=== PATIENT | female | born 1940 ===

== ENCOUNTER 2019-06-01 17:19 | Inpatient (IN) | payer MEDICARE ==
[2019-06-01] MEDS ORDERED: MORPHINE 4 MG/1 ML INJ IV ONE (18:17)
[2019-06-01] MEDS ORDERED: ONDANSETRON 4 MG/2 ML INJ IV ONE (18:17)
[2019-06-01] MEDS ORDERED: KETOROLAC 30 MG/1 ML INJ IV ONE (18:17)
[2019-06-01 18:45] LABS: Hematocrit 46.8 % (30.3-42.9); Hemoglobin 15.6 gm/dl (10.1-14.3); Mean Corpuscular HGB Conc 33 % (30-34); Mean Corpuscular Volume 99 fl (79-97); Platelet Count 191 K/mm3 (140-440); Red Blood Count 4.72 M/mm3 (3.65-5.03); Red Cell Distribution Width 13.7 % (13.2-15.2)
[2019-06-01 18:55] LABS: Alanine Aminotransferase 19 units/L (7-56); Albumin 3.6 g/dL (3.9-5); BUN/Creatinine Ratio 30; Blood Urea Nitrogen 24 mg/dL (7-17); Calcium 9.5 mg/dL (8.4-10.2); Hemolysis Index 74
[2019-06-01 19:03] LABS: Bilirubin,Direct < 0.2 mg/dL (0-0.2)
--- NOTE | 2019-06-01 19:05 | Emergency Department Report ---
ED Abdominal Pain HPI - General Chief Complaint: Abdominal Pain Stated Complaint: ABDOMINAL PAIN Time Seen by Provider: 06/01/19 18:13 Source: patient Mode of arrival: Ambulatory Limitations: Language Barrier - History of Present Illness Initial Comments: Patient is a 78-year-old female who is presenting with right lower quadrant pain. Patient's granddaughter and son her primary interpreters and the patient stated that she was filed with the interpreting for her. The patient states that for the past 2 weeks she's had some dull lower abdominal discomfort that she attributed to a possible gas. Over the past 2-4 days this is worsened significantly. The patient states is now a constant 8 out of 10 pain. She denies nausea vomiting diarrhea or fever. Patient also states she has no cough or worsened shortness of breath. Patient's is on oxygen at home. Patient has a history of hypertension and had a partial liver resection secondary to cancer 6 years ago. - Related Data Allergies Allergy/AdvReac Type Severity Reaction Status Date / Time pork derived (porcine) AdvReac Hives Verified 06/01/19 17:23 ED Review of Systems ROS: Stated complaint: ABDOMINAL PAIN Other details as noted in HPI Comment: All other systems reviewed and negative ED Past Medical Hx - Past Medical History Hx Hypertension: Yes Hx of Cancer: Yes (lung ca 6yrs ago liver ca) Additional medical history: rt liver removed liver ca - Surgical History Additional Surgical History: umbilical removed - Social History Smoking Status: Never Smoker Substance Use Type: None ED Physical Exam - General Limitations: Language Barrier General appearance: alert, in no apparent distress - Head Head exam: Present: atraumatic, normocephalic - Eye Eye exam: Present: normal appearance, PERRL, EOMI - ENT ENT exam: Present: mucous membranes moist - Neck Neck exam: Present: normal inspection - Respiratory Respiratory exam: Present: normal lung sounds bilaterally. Absent: respiratory distress, wheezes, rales, rhonchi - Cardiovascular Cardiovascular Exam: Present: regular rate, normal rhythm, normal heart sounds. Absent: systolic murmur, diastolic murmur, rubs, gallop - GI/Abdominal GI/Abdominal exam: Present: soft, tenderness, normal bowel sounds, other (RLQ scar present from previous surgeries). Absent: distended, guarding, rebound, rigid - Extremities Exam Extremities exam: Present: normal inspection - Back Exam Back exam: Present: normal inspection - Neurological Exam Neurological exam: Present: alert, oriented X3 - Psychiatric Psychiatric exam: Present: normal affect, normal mood - Skin Skin exam: Present: warm, dry, intact, normal color. Absent: rash ED Course Vital Signs 06/01/19 06/01/19 06/01/19 17:28 19:14 20:00 Temperature 98.3 F Pulse Rate 61 60 Respiratory 20 18 20 Rate Blood Pressure 122/46 Blood Pressure 126/57 [Left] O2 Sat by Pulse 92 93 Oximetry ED Medical Decision Making - Lab Data Result diagrams: 06/01/19 18:22 06/01/19 18:22 Lab Results 06/01/19 06/01/19 Range/Units 18:22 18:22 WBC 5.1 (4.5-11.0) K/mm3 RBC 4.72 (3.65-5.03) M/mm3 Hgb 15.6 H (10.1-14.3) gm/dl Hct 46.8 H (30.3-42.9) % MCV 99 H (79-97) fl MCH 33 H (28-32) pg MCHC 33 (30-34) % RDW 13.7 (13.2-15.2) % Plt Count 191 (140-440) K/mm3 Cotton % (Auto) Finisher Machine Sodium 133 L (137-145) mmol/L Potassium 4.2 (3.6-5.0) mmol/L Chloride 95.4 L (98-107) mmol/L Carbon Dioxide 21 L (22-30) mmol/L Anion Gap 21 mmol/L BUN 24 H (7-17) mg/dL Creatinine 0.8 (0.7-1.2) mg/dL Estimated GFR > 60 ml/min BUN/Creatinine Ratio 30 % Glucose 137 H (65-100) mg/dL Calcium 9.5 (8.4-10.2) mg/dL Total Bilirubin 0.60 (0.1-1.2) mg/dL Direct Bilirubin < 0.2 (0-0.2) mg/dL Indirect Bilirubin 0.4 mg/dL AST 33 (5-40) units/L ALT 19 (7-56) units/L Alkaline Phosphatase 86 (35-129) units/L Total Protein 7.5 (6.3-8.2) g/dL Albumin 3.6 L (3.9-5) g/dL Albumin/Globulin Ratio 0.9 % Lipase 56 (13-60) units/L - Radiology Data Ordering Physician: LUPE BOYD MD Date of Service: 06/01/19 Procedure(s): CT abdomen pelvis w con Accession Number(s): [id number] cc: LUPE BOYD MD CT ABDOMEN AND PELVIS WITH CONTRAST HISTORY: Right lower quadrant abdominal pain COMPARISON: None TECHNIQUE: Routine abdominal and pelvic CT exam performed following intravenous contrast administration. The patient received 100 mL of IV Omnipaque 300. All CT scans at this location are performed using CT dose reduction for ALARA by means of automated exposure control. FINDINGS: CT ABDOMEN: Lung Bases: There are numerous pulmonary nodules in the visualized right lung, with the largest in the posterior right lower lobe measuring 3.3 x 2.5 cm. There is some small nodules in the left lower lung as well measuring up to 5 mm. Liver: No significant abnormality. Biliary: No significant abnormality. Spleen: No significant abnormality. Unenlarged. Pancreas: No significant abnormality. Adrenals: No significant abnormality. Kidneys: The right kidney is surgically absent. There are multiple small simple cysts in the left kidney without acute abnormality. Vasculature: No significant abnormality. Bowel/Peritoneum: There is a mass in the root of the mesentery anterior to the inferior margin of the IVC and abdominal aorta with internal hypoattenuation most likely reflecting necrosis. This mass measures 3.8 x 3.1 cm. There is no bowel obstruction, free air, or portal venous gas. CT PELVIC: : No significant abnormality. Lymphatics: No lymphadenopathy. Osseous Structures: No aggressive appearing osseous lesions. There is a vertebral body hemangioma in the L2 vertebral body. Additional Findings: None IMPRESSION: 1. Innumerable bilateral, right greater than left, pulmonary nodules and masses in the visualized lower lungs suggesting metastatic disease. 2. Necrotic mass in the root of the mesentery anterior to the aorta and IVC, also likely metastatic lesion/adenopathy. Signer Name: Gene Akers MD - Medical Decision Making Patient is a 78-year-old female with a past medical history of liver cancer with possible cancer in the right lung. Family states that the patient to their knowledge never underwent chemotherapy but did have a partial resection of the liver done. After that time the patient's been on oxygen as well secondary to possible scar tissue of the lungs. Patient's pain started appro ximately 2 weeks ago was mild until 3 days ago patient started having severe pain. Patient's pain is improved after a dose of morphine here in the emergency department. After her studies are relatively unremarkable. The patient's CT is suggestive of metastatic disease and there is a necrotic mass at the mesentery. Patient to be admitted to the hospitalist service for consultation with hemoptysis surgery. Patient started on Zosyn for the necrotic area that is present on CT. Patient admitted in stable condition. Critical care attestation.: If time is entered above; I have spent that time in minutes in the direct care of this critically ill patient, excluding procedure time. ED Disposition Clinical Impression: Mesenteric mass, Metastatic disease Abdominal pain Qualifiers: Abdominal location: generalized Qualified Code(s): R10.84 - Generalized abdominal pain Disposition: OP ADMIT IP TO THIS HOSP Is pt being admited?: Yes Does the pt Need Aspirin: No Condition: Stable Time of Disposition: 20:57
[2019-06-01 20:08] LABS: Basophils % (Manual) 0 % (0.0-1.8); RBC Morphology Normal; Total Cells Counted 100
--- NOTE | 2019-06-01 20:22 | Cat Scan Report ---
CT ABDOMEN AND PELVIS WITH CONTRAST HISTORY: Right lower quadrant abdominal pain COMPARISON: None TECHNIQUE: Routine abdominal and pelvic CT exam performed following intravenous contrast administrat ion. The patient received 100 mL of IV Omnipaque 300. All CT scans at this location are performed usi ng CT dose reduction for ALARA by means of automated exposure control. FINDINGS: CT ABDOMEN: Lung Bases: There are numerous pulmonary nodules in the visualized right lung, with the largest in th e posterior right lower lobe measuring 3.3 x 2.5 cm. There is some small nodules in the left lower ally ng as well measuring up to 5 mm. Liver: No significant abnormality. Biliary: No significant abnormality. Spleen: No significant abnormality. Unenlarged. Pancreas: No significant abnormality. Adrenals: No significant abnormality. Kidneys: The right kidney is surgically absent. There are multiple small simple cysts in the left kid rekha without acute abnormality. Vasculature: No significant abnormality. Bowel/Peritoneum: There is a mass in the root of the mesentery anterior to the inferior margin of the IVC and abdominal aorta with internal hypoattenuation most likely reflecting necrosis. This mass avani sures 3.8 x 3.1 cm. There is no bowel obstruction, free air, or portal venous gas. CT PELVIC: : No significant abnormality. Lymphatics: No lymphadenopathy. Osseous Structures: No aggressive appearing osseous lesions. There is a vertebral body hemangioma in the L2 vertebral body. Additional Findings: None IMPRESSION: 1. Innumerable bilateral, right greater than left, pulmonary nodules and masses in the visualized low er lungs suggesting metastatic disease. 2. Necrotic mass in the root of the mesentery anterior to the aorta and IVC, also likely metastatic l esion/adenopathy. Signer Name: Gene Akers MD Signed: 06/01/2019 8:18 PM Workstation Name: [id number]
[2019-06-01 20:35] LABS: Bilirubin,Urine NEG (Negative); Blood,Urine NEG (Negative); Color,Urine Yellow (Yellow); Mucus,Urine FEW /HPF; Protein,Urine <15 mg/dL mg/dL (Negative); Urobilinogen,Urine < 2.0 mg/dL (<2.0)
[2019-06-01] MEDS ORDERED: PIPERACIL/TAZOBACTA 4.5/NS 100 4.5 GM/100 ML VIAL IV ONE (20:52)
[2019-06-01] MEDS ORDERED: ONDANSETRON 4 MG/2 ML INJ IV PRN (21:38)
[2019-06-01] MEDS ORDERED: ALBUTEROL 2.5 MG/3 ML NEBU IH PRN (22:42)
--- NOTE | 2019-06-01 22:46 | History and Physical Report ---
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 Pt's granddaughter are present at bedside. Pt has requested that they translate and assist in providing history. Pt has been experiencing intermittent 4/10 dull abdominal pain for the past 2 weeks which has progressively worsened over the past 3 days. Her pain is now persistent and has intensified. She rates her pain 9/10. Her pain in diffuse. There are no aggravating, and is relieved with IV pain meds. She denies n/v. Past History Past Medical History: cancer (lung ca with mets to liver (approx 6yrs ago in 2012)), hypertension Past Surgical History: Other (s/p partial liver resection, umbilical removed, kidney removal) Social history: lives with family, full code Family history: no significant family history Medications and Allergies Allergies Allergy/AdvReac Type Severity Reaction Status Date / Time pork derived (porcine) AdvReac Hives Verified 06/01/19 17:23 Home Medications Medication Instructions Recorded Confirmed Last Taken Type Unobtainable 06/01/19 06/01/19 Unknown History Active Meds: Active Medications Acetaminophen (Tylenol) 650 mg PO Q4H PRN PRN Reason: Pain MILD(1-3)/Fever >100.5/ALAN Sodium Chloride (Nacl 0.9% 1000 Ml) 1,000 mls @ 75 mls/hr IV DIRECT DOLLY Morphine Sulfate (Morphine) 2 mg IV Q4H PRN PRN Reason: Pain, Moderate (4-6) Ondansetron HCl (Zofran) 4 mg IV Q6H PRN PRN Reason: Nausea And Vomiting Sodium Chloride (Sodium Chloride Flush Syringe 10 Ml) 10 ml IV BID [facility] Last Admin: 06/01/19 22:04 Dose: 10 ml Documented by: Sodium Chloride (Sodium Chloride Flush Syringe 10 Ml) 10 ml IV PRN PRN PRN Reason: LINE FLUSH Review of Systems All systems: negative Cardiovascular: shortness of breath, dyspnea on exertion Gastrointestinal: abdominal pain Exam - Physical Exam Narrative exam: Physical exam Limitations: Language Barrier General appearance: Present: No acute distress, alert and oriented 3, older adult female - EENT Eyes: Present: PERRL, EOM intact ENT: hearing intact, missing teeth - Neck Neck: Present: supple, normal ROM - Respiratory Respiratory effort: Non-labored Respiratory: Diminished bases - Cardiovascular Heart rate: 60 (bpm) Rhythm: Sinus rhythm Heart Sounds: Present: S1 & S2. Absent: rub, click - Extremities Extremities: no ischemia, pulses intact, - Peripheral Assessment Peripheral Pulses: within normal limits - Abdominal General gastrointestinal: soft, RUQ and RLQ tenderness, normal bowel sounds, RLQ scar present from previous surgery - Integumentary Integumentary: Present: warm, dry - Musculoskeletal Musculoskeletal: Able to move all extremities, generalized weakness -Neurological Neurological: CN II-XII intact - Psychiatric Psychiatric: cooperative - Constitutional Vitals: Temp Pulse Resp BP Pulse Ox 98.3 F 60 20 126/57 93 06/01/19 17:28 06/01/19 19:14 06/01/19 20:00 06/01/19 19:14 06/01/19 19:14 Results - Labs CBC & Chem 7: 06/01/19 18:22 06/01/19 18:22 Labs: Laboratory Last Values WBC 5.1 K/mm3 (4.5-11.0) 06/01/19 18:22 RBC 4.72 M/mm3 (3.65-5.03) 06/01/19 18:22 Hgb 15.6 gm/dl (10.1-14.3) H 06/01/19 18:22 Hct 46.8 % (30.3-42.9) H 06/01/19 18:22 MCV 99 fl (79-97) H 06/01/19 18:22 MCH 33 pg (28-32) H 06/01/19 18:22 MCHC 33 % (30-34) 06/01/19 18:22 RDW 13.7 % (13.2-15.2) 06/01/19 18:22 Plt Count 191 K/mm3 (140-440) 06/01/19 18:22 Labette % (Auto) Movie Star 06/01/19 18:22 Add Manual Diff Complete 06/01/19 18:22 Total Counted 100 06/01/19 18:22 Seg Neuts % (Manual) 68.0 % (40.0-70.0) 06/01/19 18:22 Band Neutrophils % 0 % 06/01/19 18:22 Lymphocytes % (Manual) 18.0 % (13.4-35.0) 06/01/19 18:22 Reactive Lymphs % (Man) 0 % 06/01/19 18:22 Monocytes % (Manual) 13.0 % (0.0-7.3) H 06/01/19 18:22 Eosinophils % (Manual) 1.0 % (0.0-4.3) 06/01/19 18:22 Basophils % (Manual) 0 % (0.0-1.8) 06/01/19 18:22 Metamyelocytes % 0 % 06/01/19 18:22 Myelocytes % 0 % 06/01/19 18:22 Promyelocytes % 0 % 06/01/19 18:22 Blast Cells % 0 % 06/01/19 18:22 Nucleated RBC % Not Reportable 06/01/19 18:22 Seg Neutrophils # Man 3.5 K/mm3 (1.8-7.7) 06/01/19 18:22 Band Neutrophils # 0.0 K/mm3 06/01/19 18:22 Lymphocytes # (Manual) 0.9 K/mm3 (1.2-5.4) L 06/01/19 18:22 Abs React Lymphs (Man) 0.0 K/mm3 06/01/19 18:22 Monocytes # (Manual) 0.7 K/mm3 (0.0-0.8) 06/01/19 18:22 Eosinophils # (Manual) 0.1 K/mm3 (0.0-0.4) 06/01/19 18:22 Basophils # (Manual) 0.0 K/mm3 (0.0-0.1) 06/01/19 18:22 Metamyelocytes # 0.0 K/mm3 06/01/19 18:22 Myelocytes # 0.0 K/mm3 06/01/19 18:22 Promyelocytes # 0.0 K/mm3 06/01/19 18:22 Blast Cells # 0.0 K/mm3 06/01/19 18:22 WBC Morphology Not Reportable 06/01/19 18:22 Hypersegmented Neuts Not Reportable 06/01/19 18:22 Hyposegmented Neuts Not Reportable 06/01/19 18:22 Hypogranular Neuts Not Reportable 06/01/19 18:22 Smudge Cells Not Reportable 06/01/19 18:22 Toxic Granulation Not Reportable 06/01/19 18:22 Toxic Vacuolation Not Reportable 06/01/19 18:22 Dohle Bodies Not Reportable 06/01/19 18:22 Pelger-Huet Anomaly Not Reportable 06/01/19 18:22 Zoila Rods Not Reportable 06/01/19 18:22 Platelet Estimate Not Reportable 06/01/19 18:22 Clumped Platelets Not Reportable 06/01/19 18:22 Plt Clumps, EDTA Not Reportable 06/01/19 18:22 Large Platelets Not Reportable 06/01/19 18:22 Giant Platelets Not Reportable 06/01/19 18:22 Platelet Satelliting Not Reportable 06/01/19 18:22 Plt Morphology Comment Not Reportable 06/01/19 18:22 RBC Morphology Normal 06/01/19 18:22 Dimorphic RBCs Not Reportable 06/01/19 18:22 Polychromasia Not Reportable 06/01/19 18:22 Hypochromasia Not Reportable 06/01/19 18:22 Poikilocytosis Not Reportable 06/01/19 18:22 Anisocytosis Not Reportable 06/01/19 18:22 Microcytosis Not Reportable 06/01/19 18:22 Macrocytosis Not Reportable 06/01/19 18:22 Spherocytes Not Reportable 06/01/19 18:22 Pappenheimer Bodies Not Reportable 06/01/19 18:22 Sickle Cells Not Reportable 06/01/19 18:22 Target Cells Not Reportable 06/01/19 18:22 Tear Drop Cells Not Reportable 06/01/19 18:22 Ovalocytes Not Reportable 06/01/19 18:22 Helmet Cells Not Reportable 06/01/19 18:22 Jay-Presho Bodies Not Reportable 06/01/19 18:22 [place] Rings Not Reportable 06/01/19 18:22 [place] Cells Not Reportable 06/01/19 18:22 Bite Cells Not Reportable 06/01/19 18:22 Crenated Cell Not Reportable 06/01/19 18:22 Elliptocytes Not Reportable 06/01/19 18:22 Acanthocytes (Spur) Not Reportable 06/01/19 18:22 Rouleaux Not Reportable 06/01/19 18:22 Hemoglobin C Crystals Not Reportable 06/01/19 18:22 Schistocytes Not Reportable 06/01/19 18:22 Malaria parasites Not Reportable 06/01/19 18:22 Kewrin Bodies Not Reportable 06/01/19 18:22 Hem Pathologist Commnt No 06/01/19 18:22 Sodium 133 mmol/L (137-145) L 06/01/19 18:22 Potassium 4.2 mmol/L (3.6-5.0) 06/01/19 18:22 Chloride 95.4 mmol/L (98-107) L 06/01/19 18:22 Carbon Dioxide 21 mmol/L (22-30) L 06/01/19 18:22 Anion Gap 21 mmol/L 06/01/19 18:22 BUN 24 mg/dL (7-17) H 06/01/19 18:22 Creatinine 0.8 mg/dL (0.7-1.2) 06/01/19 18:22 Estimated GFR > 60 ml/min 06/01/19 18:22 BUN/Creatinine Ratio 30 % 06/01/19 18:22 Glucose 137 mg/dL (65-100) H 06/01/19 18:22 Calcium 9.5 mg/dL (8.4-10.2) 06/01/19 18:22 Total Bilirubin 0.60 mg/dL (0.1-1.2) 06/01/19 18:22 Direct Bilirubin < 0.2 mg/dL (0-0.2) 06/01/19 18:22 Indirect Bilirubin 0.4 mg/dL 06/01/19 18:22 AST 33 units/L (5-40) 06/01/19 18:22 ALT 19 units/L (7-56) 06/01/19 18:22 Alkaline Phosphatase 86 units/L (35-129) 06/01/19 18:22 Total Protein 7.5 g/dL (6.3-8.2) 06/01/19 18:22 Albumin 3.6 g/dL (3.9-5) L 06/01/19 18:22 Albumin/Globulin Ratio 0.9 % 06/01/19 18:22 Lipase 56 units/L (13-60) 06/01/19 18:22 Urine Color Yellow (Yellow) 06/01/19 20: Urine Turbidity Clear (Clear) 06/01/19 20:26 Urine pH 6.0 (5.0-7.0) 06/01/19 20:26 Ur Specific [place] 1.043 (1.003-1.030) H 06/01/19 20:26 Urine Protein <15 mg/dl mg/dL (Negative) 06/01/19 20:26 Urine Glucose (UA) Neg mg/dL (Negative) 06/01/19 20: Urine Ketones Neg mg/dL (Negative) 06/01/19 20: Urine Blood Neg (Negative) 06/01/19 20:26 Urine Nitrite Neg (Negative) 06/01/19 20:26 Urine Bilirubin Neg (Negative) 06/01/19 20:26 Urine Urobilinogen < 2.0 mg/dL (<2.0) 06/01/19 20:26 Ur Leukocyte Esterase Neg (Negative) 06/01/19 20:26 Urine WBC (Auto) 1.0 /HPF (0.0-6.0) 06/01/19 20:26 Urine RBC (Auto) 1.0 /HPF (0.0-6.0) 06/01/19 20:26 U Epithel Cells (Auto) < 1.0 /HPF (0-13.0) 06/01/19 20:26 Urine Mucus Few /HPF 06/01/19 20:26 - Imaging and Cardiology Imaging and Cardiology: CT Abdomen/Pelvis: FINDINGS: CT ABDOMEN: Lung Bases: There are numerous pulmonary nodules in the visualized right lung, with the largest in the posterior right lower lobe measuring 3.3 x 2.5 cm. There is some small nodules in the left lower lung as well measuring up to 5 mm. Liver: No significant abnormality. Biliary: No significant abnormality. Spleen: No significant abnormality. Unenlarged. Pancreas: No significant abnormality. Adrenals: No significant abnormality. Kidneys: The right kidney is surgically absent. There are multiple small simple cysts in the left kidney without acute abnormality. Vasculature: No significant abnormality. Bowel/Peritoneum: There is a mass in the root of the mesentery anterior to the inferior margin of the IVC and abdominal aorta with internal hypoattenuation most likely reflecting necrosis. This mass measures 3.8 x 3.1 cm. There is no bowel obstruction, free air, or portal venous gas. CT PELVIC: : No significant abnormality. Lymphatics: No lymphadenopathy. Osseous Structures: No aggressive appearing osseous lesions. There is a vertebral body hemangioma in the L2 vertebral body. Additional Findings: None IMPRESSION: 1. Innumerable bilateral, right greater than left, pulmonary nodules and masses in the visualized lower lungs suggesting metastatic disease. 2. Necrotic mass in the root of the mesentery anterior to the aorta and IVC, also likely metastatic lesion/adenopathy. Assessment and Plan Assessment and plan: 71-year-old speaking female with history of hypertension and Liver cancer wit mets to liver who presents to [facility] ED with complaints of abdominal pain for the past 2 weeks, which has progressively worsened over the past 3 days. At the time of my examination, pt is laying down on stretcher with no s/s of distress. She is on 2L NC with saturation of 92%. When questioned about her previous liver, pt is unsure of the name of facility where her surgery was done. Her family seems to think it was performed here at [facility]. This is not reflected in review of medical records. Given the results of pt's CT Abdomen/Pelvis, I have placed a consult to Case Mgmt for possible home palliative care/ hospice services. I discussed goals of care with family, who stated they need time to dicuss with pt and family before making any decisions. Acute abdominal pain -CT Abdomen/Pelvis shows: Necrotic mass in the root of the mesentery anterior to the aorta and IVC, also likely metastatic lesion/adenopathy -Hx of lung cancer with mets to liver, s/p partial liver (approx 6 yrs ago) - Received IV Zosyn in ED -Continue supportive care -GI consulted -General Surgery Consulted -Heme/Onc consulted Bilateral Pulmonary Nodules (Innumerable) - R>L pulmonary nodules and masses in the visualized lower lungs suggesting metastatic disease -Hx of Lung cancer with mets to liver -Denies hx of chemo therapy or radiation -Pulmonary Consulted --Heme/Onc consulted Acute Hypoxic Respiratory Failure -No Baseline home oxygen requirements -Saturations in mid 80's on RA -Currently on supplemental -Monitor saturations -Continue supplemental oxygen wean as tolerated Hyponatremia -Mild -Na on admission 133 -Slowly correct Na with IVF -Continue to monitor replete prn Hx HTN -Currnently noromotensive -Denies use of antihypertensive meds -Monitor BP DVT PPX -Hold off on systemic anticoagulation d/t metastatic disease -SCD's Advance Directives: No VTE prophylaxis?: Mechanical Plan of care discussed with patient/family: Yes <AMRITA CORTEZ - Last Filed: 06/02/19 06:42> History of Present Illness Date of admission: 06/01/19 20:57 Medications and Allergies Active Meds: Active Medications Acetaminophen (Tylenol) 650 mg PO Q4H PRN PRN Reason: Pain MILD(1-3)/Fever >100.5/ALAN Albuterol (Proventil) 2.5 mg IH Q4HRT PRN PRN Reason: Shortness Of Breath Sodium Chloride (Nacl 0.9% 1000 Ml) 1,000 mls @ 75 mls/hr IV DIRECT [facility] Last Admin: 06/02/19 00:30 Dose: 75 mls/hr Documented by: Morphine Sulfate (Morphine) 2 mg IV Q4H PRN PRN Reason: Pain, Moderate (4-6) Last Admin: 06/02/19 04:47 Dose: 2 mg Documented by: Ondansetron HCl (Zofran) 4 mg IV Q6H PRN PRN Reason: Nausea And Vomiting Sodium Chloride (Sodium Chloride Flush Syringe 10 Ml) 10 ml IV BID [facility] Last Admin: 06/01/19 22:04 Dose: 10 ml Documented by: Sodium Chloride (Sodium Chloride Flush Syringe 10 Ml) 10 ml IV PRN PRN PRN Reason: LINE FLUSH Exam - Constitutional Vitals: Temp Pulse Resp BP Pulse Ox 98.8 F 61 18 124/49 92 06/01/19 23:42 06/02/19 05:00 06/02/19 04:47 06/01/19 23:42 06/02/19 01:00 Results - Labs CBC & Chem 7: 06/01/19 18:22 06/01/19 18:22 Labs: Laboratory Last Values WBC 5.1 K/mm3 (4.5-11.0) 06/01/19 18:22 RBC 4.72 M/mm3 (3.65-5.03) 06/01/19 18:22 Hgb 15.6 gm/dl (10.1-14.3) H 06/01/19 18:22 Hct 46.8 % (30.3-42.9) H 06/01/19 18:22 MCV 99 fl (79-97) H 06/01/19 18:22 MCH 33 pg (28-32) H 06/01/19 18:22 MCHC 33 % (30-34) 06/01/19 18:22 RDW 13.7 % (13.2-15.2) 06/01/19 18:22 Plt Count 191 K/mm3 (140-440) 06/01/19 18:22 Labette % (Auto) Movie Star 06/01/19 18:22 Add Manual Diff Complete 06/01/19 18: Total Counted 100 06/01/19 18: Seg Neuts % (Manual) 68.0 % (40.0-70.0) 06/01/19 18:22 Band Neutrophils % 0 % 06/01/19 18:22 Lymphocytes % (Manual) 18.0 % (13.4-35.0) 06/01/19 18:22 Reactive Lymphs % (Man) 0 % 06/01/19 18:22 Monocytes % (Manual) 13.0 % (0.0-7.3) H 06/01/19 18:22 Eosinophils % (Manual) 1.0 % (0.0-4.3) 06/01/19 18:22 Basophils % (Manual) 0 % (0.0-1.8) 06/01/19 18:22 Metamyelocytes % 0 % 06/01/19 18:22 Myelocytes % 0 % 06/01/19 18:22 Promyelocytes % 0 % 06/01/19 18:22 Blast Cells % 0 % 06/01/19 18:22 Nucleated RBC % Not Reportable 06/01/19 18:22 Seg Neutrophils # Man 3.5 K/mm3 (1.8-7.7) 06/01/19 18:22 Band Neutrophils # 0.0 K/mm3 06/01/19 18:22 Lymphocytes # (Manual) 0.9 K/mm3 (1.2-5.4) L 06/01/19 18:22 Abs React Lymphs (Man) 0.0 K/mm3 06/01/19 18:22 Monocytes # (Manual) 0.7 K/mm3 (0.0-0.8) 06/01/19 18:22 Eosinophils # (Manual) 0.1 K/mm3 (0.0-0.4) 06/01/19 18:22 Basophils # (Manual) 0.0 K/mm3 (0.0-0.1) 06/01/19 18:22 Metamyelocytes # 0.0 K/mm3 06/01/19 18:22 Myelocytes # 0.0 K/mm3 06/01/19 18:22 Promyelocytes # 0.0 K/mm3 06/01/19 18:22 Blast Cells # 0.0 K/mm3 06/01/19 18:22 WBC Morphology Not Reportable 06/01/19 18:22 Hypersegmented Neuts Not Reportable 06/01/19 18:22 Hyposegmented Neuts Not Reportable 06/01/19 18:22 Hypogranular Neuts Not Reportable 06/01/19 18:22 Smudge Cells Not Reportable 06/01/19 18:22 Toxic Granulation Not Reportable 06/01/19 18:22 Toxic Vacuolation Not Reportable 06/01/19 18:22 Dohle Bodies Not Reportable 06/01/19 18:22 Pelger-Huet Anomaly Not Reportable 06/01/19 18:22 Zoila Rods Not Reportable 06/01/19 18:22 Platelet Estimate Not Reportable 06/01/19 18:22 Clumped Platelets Not Reportable 06/01/19 18:22 Plt Clumps, EDTA Not Reportable 06/01/19 18:22 Large Platelets Not Reportable 06/01/19 18:22 Giant Platelets Not Reportable 06/01/19 18:22 Platelet Satelliting Not Reportable 06/01/19 18:22 Plt Morphology Comment Not Reportable 06/01/19 18:22 RBC Morphology Normal 06/01/19 18:22 Dimorphic RBCs Not Reportable 06/01/19 18:22 Polychromasia Not Reportable 06/01/19 18:22 Hypochromasia Not Reportable 06/01/19 18:22 Poikilocytosis Not Reportable 06/01/19 18:22 Anisocytosis Not Reportable 06/01/19 18:22 Microcytosis Not Reportable 06/01/19 18:22 Macrocytosis Not Reportable 06/01/19 18:22 Spherocytes Not Reportable 06/01/19 18:22 Pappenheimer Bodies Not Reportable 06/01/19 18:22 Sickle Cells Not Reportable 06/01/19 18:22 Target Cells Not Reportable 06/01/19 18:22 Tear Drop Cells Not Reportable 06/01/19 18:22 Ovalocytes Not Reportable 06/01/19 18:22 Helmet Cells Not Reportable 06/01/19 18:22 Jay-Presho Bodies Not Reportable 06/01/19 18:22 Tyndall Rings Not Reportable 06/01/19 18:22 [place] Cells Not Reportable 06/01/19 18:22 Bite Cells Not Reportable 06/01/19 18:22 Crenated Cell Not Reportable 06/01/19 18:22 Elliptocytes Not Reportable 06/01/19 18:22 Acanthocytes (Spur) Not Reportable 06/01/19 18:22 Rouleaux Not Reportable 06/01/19 18:22 Hemoglobin C Crystals Not Reportable 06/01/19 18:22 Schistocytes Not Reportable 06/01/19 18:22 Malaria parasites Not Reportable 06/01/19 18:22 [place] Bodies Not Reportable 06/01/19 18:22 Hem Pathologist Commnt No 06/01/19 18:22 Sodium 133 mmol/L (137-145) L 06/01/19 18:22 Potassium 4.2 mmol/L (3.6-5.0) 06/01/19 18:22 Chloride 95.4 mmol/L (98-107) L 06/01/19 18:22 Carbon Dioxide 21 mmol/L (22-30) L 06/01/19 18:22 Anion Gap 21 mmol/L 06/01/19 18:22 BUN 24 mg/dL (7-17) H 06/01/19 18:22 Creatinine 0.8 mg/dL (0.7-1.2) 06/01/19 18:22 Estimated GFR > 60 ml/min 06/01/19 18:22 BUN/Creatinine Ratio 30 % 06/01/19 18:22 Glucose 137 mg/dL (65-100) H 06/01/19 18:22 Calcium 9.5 mg/dL (8.4-10.2) 06/01/19 18:22 Total Bilirubin 0.60 mg/dL (0.1-1.2) 06/01/19 18:22 Direct Bilirubin < 0.2 mg/dL (0-0.2) 06/01/19 18:22 Indirect Bilirubin 0.4 mg/dL 06/01/19 18:22 AST 33 units/L (5-40) 06/01/19 18:22 ALT 19 units/L (7-56) 06/01/19 18:22 Alkaline Phosphatase 86 units/L (35-129) 06/01/19 18:22 Total Protein 7.5 g/dL (6.3-8.2) 06/01/19 18:22 Albumin 3.6 g/dL (3.9-5) L 06/01/19 18:22 Albumin/Globulin Ratio 0.9 % 06/01/19 18:22 Lipase 56 units/L (13-60) 06/01/19 18:22 Urine Color Yellow (Yellow) 06/01/19 20:26 Urine Turbidity Clear (Clear) 06/01/19 20:26 Urine pH 6.0 (5.0-7.0) 06/01/19 20:26 Ur Specific [place] 1.043 (1.003-1.030) H 06/01/19 20:26 Urine Protein <15 mg/dl mg/dL (Negative) 06/01/19 20:26 Urine Glucose (UA) Neg mg/dL (Negative) 06/01/19 20:26 Urine Ketones Neg mg/dL (Negative) 06/01/19 20:26 Urine Blood Neg (Negative) 06/01/19 20:26 Urine Nitrite Neg (Negative) 06/01/19 20:26 Urine Bilirubin Neg (Negative) 06/01/19 20:26 Urine Urobilinogen < 2.0 mg/dL (<2.0) 06/01/19 20:26 Ur Leukocyte Esterase Neg (Negative) 06/01/19 20:26 Urine WBC (Auto) 1.0 /HPF (0.0-6.0) 06/01/19 20:26 Urine RBC (Auto) 1.0 /HPF (0.0-6.0) 06/01/19 20:26 U Epithel Cells (Auto) < 1.0 /HPF (0-13.0) 06/01/19 20:26 Urine Mucus Few /HPF 06/01/19 20:26 Assessment and Plan Assessment and plan: 78-year-old woman with a history of lung cancer with mets to liver, status post surgery 6-7 years ago, comes emergency room with abdominal pain. She has decreased oral intake. Her CAT scan showed recurrence of malignancy. Daughter states that patient refused chemotherapy 6 years ago, she has been doing homeopathic medicine. Agree with plan as stated above
[2019-06-02] MEDS: SODIUM CHLORIDE 0.9% 1000 ML 1,000 ML IV SCH ×2 (00:30→17:54)
[2019-06-02] MEDS: MORPHINE 2 MG/1 ML INJ IV PRN ×3 (00:30→17:49)
[2019-06-02 06:44] LABS: Basophils % (Auto) 0.8 % (0.0-1.8); Eosinophils % (Auto) 0.3 % (0.0-4.3); Hematocrit 46.9 % (30.3-42.9); Hemoglobin 15.5 gm/dl (10.1-14.3); Lymphocytes # (Auto) 0.6 K/mm3 (1.2-5.4); Lymphocytes % (Auto) 10.7 % (13.4-35.0); Mean Corpuscular HGB Conc 33 % (30-34); Mean Corpuscular Volume 100 fl (79-97); Monocytes # (Auto) 0.9 K/mm3 (0.0-0.8); Monocytes % (Auto) 15.2 % (0.0-7.3); Platelet Count 183 K/mm3 (140-440); Red Blood Count 4.69 M/mm3 (3.65-5.03); Red Cell Distribution Width 13.6 % (13.2-15.2)
[2019-06-02 06:52] LABS: BUN/Creatinine Ratio 24; Blood Urea Nitrogen 19 mg/dL (7-17); Calcium 9.2 mg/dL (8.4-10.2); Hemolysis Index 7
--- NOTE | 2019-06-02 08:12 | Progress Note ---
Assessment and Plan Assessment and plan: Patient is a 71-year-old speaking female with history of hypertension and Liver cancer wit mets to liver who presents to [facility] with complaints of abdominal pain for the past 2 weeks. Pt's granddaughter are present at bedside. Pt has requested that they translate and assist in providing history. Pt has been experiencing intermittent 4/10 dull abdominal pain for the past 2 weeks which has progressively worsened over the past 3 days. Her pain is now persistent and has intensified. She rates her pain 9/10. Her pain in diffuse. There are no aggravating, and is relieved with IV pain meds. She denies n/v. * CT Abdomen/Pelvis IMPRESSION: 1. Innumerable bilateral, right greater than left, pulmonary nodules and masses in the visualized lower lungs suggesting metastatic disease. 2. Necrotic mass in the root of the mesentery anterior to the aorta and IVC, also likely metastatic lesion/adenopathy. Acute abdominal pain -CT Abdomen/Pelvis shows: Necrotic mass in the root of the mesentery anterior to the aorta and IVC, also likely metastatic lesion/adenopathy -Hx of lung cancer with mets to liver, s/p partial liver (approx 6 yrs ago) - Received IV Zosyn in ED -Continue supportive care -GI consulted -General Surgery Consulted -Heme/Onc consulted Bilateral Pulmonary Nodules (Innumerable) - R>L pulmonary nodules and masses in the visualized lower lungs suggesting metastatic disease -Hx of Lung cancer with mets to liver -Denies hx of chemo therapy or radiation -Pulmonary Consulted --Heme/Onc consulted Acute Hypoxic Respiratory Failure -No Baseline home oxygen requirements -Saturations in mid 80's on RA -Currently on supplemental -Monitor saturations -Continue supplemental oxygen wean as tolerated Hyponatremia -Mild -Na on admission 133 -Slowly correct Na with IVF -Continue to monitor replete prn Hx HTN -Currnently noromotensive -Denies use of antihypertensive meds -Monitor BP DVT PPX -Hold off on systemic anticoagulation d/t metastatic disease -SCD's new issue: AFib with RVR, proven by EKG: consulted and notified Dr. Alcala. more to tele, get bp History Interval history: Patient was seen and examined. Follow-up on current diagnosis. No overnight events reported to me. Patient denies any chest pain, shortness breath, nausea/vomiting or severe headaches. Imaging, nursing note, chart, labs and old chart reviewed. Discussed with patient. Daughters Ruth and Vianey interpreted. Vianey knows more about health history Hospitalist Physical - Physical exam Narrative exam: Gen: WDWN, NAD, Awake, Alert, Orientated HEENT: NCAT, EOMI, PERRL, OP Clear Neck: supple, no adenopathy, no thyromegaly, no JVD CVS/Heart: irregular irregular normal S1S2, pulses present bilaterally Chest/Lungs: diminished bs bilaterally Symmetrical chest expansion, good air entry bilaterally GI/Abdomen: soft, diffuse tenderness right to suprapubic area, good bowel so unds, no guarding or rebound /Bladder: no suprapubic tenderness, no CVA or paraspinal tenderness Extermity/Skin: no c/c/e, no obvious rash MSK: FROM x 4 Neuro: CN 2-12 grossly intact, no new focal deficits Psych: calm - Constitutional Vitals: Temp Pulse Resp BP Pulse Ox 98.8 F 61 18 124/49 92 06/01/19 23:42 06/02/19 05:00 06/02/19 04:47 06/01/19 23:42 06/02/19 01:00 Results - Labs CBC & Chem 7: 06/02/19 06:02 06/02/19 06:02 Labs: Laboratory Last Values WBC 5.9 K/mm3 (4.5-11.0) 06/02/19 06:02 RBC 4.69 M/mm3 (3.65-5.03) 06/02/19 06:02 Hgb 15.5 gm/dl (10.1-14.3) H 06/02/19 06:02 Hct 46.9 % (30.3-42.9) H 06/02/19 06:02 MCV 100 fl (79-97) H 06/02/19 06:02 MCH 33 pg (28-32) H 06/02/19 06:02 MCHC 33 % (30-34) 06/02/19 06:02 RDW 13.6 % (13.2-15.2) 06/02/19 06:02 Plt Count 183 K/mm3 (140-440) 06/02/19 06:02 Lymph % (Auto) 10.7 % (13.4-35.0) L 06/02/19 06:02 [place] % (Auto) 15.2 % (0.0-7.3) H 06/02/19 06:02 Eos % (Auto) 0.3 % (0.0-4.3) 06/02/19 06:02 Baso % (Auto) 0.8 % (0.0-1.8) 06/02/19 06:02 Lymph # 0.6 K/mm3 (1.2-5.4) L 06/02/19 06:02 [place] # 0.9 K/mm3 (0.0-0.8) H 06/02/19 06:02 Eos # 0.0 K/mm3 (0.0-0.4) 06/02/19 06:02 Baso # 0.0 K/mm3 (0.0-0.1) 06/02/19 06:02 Add Manual Diff Complete 06/01/19 18:22 Total Counted 100 06/01/19 18:22 Seg Neutrophils % 73.0 % (40.0-70.0) H 06/02/19 06:02 Seg Neuts % (Manual) 68.0 % (40.0-70.0) 06/01/19 18:22 Band Neutrophils % 0 % 06/01/19 18:22 Lymphocytes % (Manual) 18.0 % (13.4-35.0) 06/01/19 18:22 Reactive Lymphs % (Man) 0 % 06/01/19 18:22 Monocytes % (Manual) 13.0 % (0.0-7.3) H 06/01/19 18:22 Eosinophils % (Manual) 1.0 % (0.0-4.3) 06/01/19 18:22 Basophils % (Manual) 0 % (0.0-1.8) 06/01/19 18:22 Metamyelocytes % 0 % 06/01/19 18:22 Myelocytes % 0 % 06/01/19 18:22 Promyelocytes % 0 % 06/01/19 18:22 Blast Cells % 0 % 06/01/19 18:22 Nucleated RBC % Not Reportable 06/01/19 18:22 Seg Neutrophils # 4.3 K/mm3 (1.8-7.7) 06/02/19 06:02 Seg Neutrophils # Man 3.5 K/mm3 (1.8-7.7) 06/01/19 18:22 Band Neutrophils # 0.0 K/mm3 06/01/19 18:22 Lymphocytes # (Manual) 0.9 K/mm3 (1.2-5.4) L 06/01/19 18:22 Abs React Lymphs (Man) 0.0 K/mm3 06/01/19 18:22 Monocytes # (Manual) 0.7 K/mm3 (0.0-0.8) 06/01/19 18:22 Eosinophils # (Manual) 0.1 K/mm3 (0.0-0.4) 06/01/19 18:22 Basophils # (Manual) 0.0 K/mm3 (0.0-0.1) 06/01/19 18:22 Metamyelocytes # 0.0 K/mm3 06/01/19 18:22 Myelocytes # 0.0 K/mm3 06/01/19 18:22 Promyelocytes # 0.0 K/mm3 06/01/19 18:22 Blast Cells # 0.0 K/mm3 06/01/19 18:22 WBC Morphology Not Reportable 06/01/19 18:22 Hypersegmented Neuts Not Reportable 06/01/19 18:22 Hyposegmented Neuts Not Reportable 06/01/19 18:22 Hypogranular Neuts Not Reportable 06/01/19 18:22 Smudge Cells Not Reportable 06/01/19 18:22 Toxic Granulation Not Reportable 06/01/19 18:22 Toxic Vacuolation Not Reportable 06/01/19 18:22 Dohle Bodies Not Reportable 06/01/19 18:22 Pelger-Huet Anomaly Not Reportable 06/01/19 18:22 Zoila Rods Not Reportable 06/01/19 18:22 Platelet Estimate Not Reportable 06/01/19 18:22 Clumped Platelets Not Reportable 06/01/19 18:22 Plt Clumps, EDTA Not Reportable 06/01/19 18:22 Large Platelets Not Reportable 06/01/19 18:22 Giant Platelets Not Reportable 06/01/19 18:22 Platelet Satelliting Not Reportable 06/01/19 18:22 Plt Morphology Comment Not Reportable 06/01/19 18:22 RBC Morphology Normal 06/01/19 18:22 Dimorphic RBCs Not Reportable 06/01/19 18:22 Polychromasia Not Reportable 06/01/19 18:22 Hypochromasia Not Reportable 06/01/19 18:22 Poikilocytosis Not Reportable 06/01/19 18:22 Anisocytosis Not Reportable 06/01/19 18:22 Microcytosis Not Reportable 06/01/19 18:22 Macrocytosis Not Reportable 06/01/19 18:22 Spherocytes Not Reportable 06/01/19 18:22 Pappenheimer Bodies Not Reportable 06/01/19 18:22 Sickle Cells Not Reportable 06/01/19 18:22 Target Cells Not Reportable 06/01/19 18:22 Tear Drop Cells Not Reportable 06/01/19 18:22 Ovalocytes Not Reportable 06/01/19 18:22 Helmet Cells Not Reportable 06/01/19 18:22 [place] Bodies Not Reportable 06/01/19 18:22 [place] Rings Not Reportable 06/01/19 18:22 Ivy Cells Not Reportable 06/01/19 18:22 Bite Cells Not Reportable 06/01/19 18:22 Crenated Cell Not Reportable 06/01/19 18:22 Elliptocytes Not Reportable 06/01/19 18:22 Acanthocytes (Spur) Not Reportable 06/01/19 18:22 Rouleaux Not Reportable 06/01/19 18:22 Hemoglobin C Crystals Not Reportable 06/01/19 18:22 Schistocytes Not Reportable 06/01/19 18:22 Malaria parasites Not Reportable 06/01/19 18:22 Kerwin Bodies Not Reportable 06/01/19 18:22 Hem Pathologist Commnt No 06/01/19 18:22 Sodium 139 mmol/L (137-145) 06/02/19 06:02 Potassium 4.6 mmol/L (3.6-5.0) 06/02/19 06:02 Chloride 101.8 mmol/L (98-107) 06/02/19 06:02 Carbon Dioxide 26 mmol/L (22-30) 06/02/19 06:02 Anion Gap 16 mmol/L 06/02/19 06:02 BUN 19 mg/dL (7-17) H 06/02/19 06:02 Creatinine 0.8 mg/dL (0.7-1.2) 06/02/19 06:02 Estimated GFR > 60 ml/min 06/02/19 06:02 BUN/Creatinine Ratio 24 % 06/02/19 06:02 Glucose 115 mg/dL (65-100) H 06/02/19 06:02 Calcium 9.2 mg/dL (8.4-10.2) 06/02/19 06:02 Total Bilirubin 0.60 mg/dL (0.1-1.2) 06/01/19 18:22 Direct Bilirubin < 0.2 mg/dL (0-0.2) 06/01/19 18:22 Indirect Bilirubin 0.4 mg/dL 06/01/19 18:22 AST 33 units/L (5-40) 06/01/19 18:22 ALT 19 units/L (7-56) 06/01/19 18:22 Alkaline Phosphatase 86 units/L (35-129) 06/01/19 18:22 Total Protein 7.5 g/dL (6.3-8.2) 06/01/19 18:22 Albumin 3.6 g/dL (3.9-5) L 06/01/19 18:22 Albumin/Globulin Ratio 0.9 % 06/01/19 18:22 Lipase 56 units/L (13-60) 06/01/19 18:22 Urine Color Yellow (Yellow) 06/01/19 20:26 Urine Turbidity Clear (Clear) 06/01/19 20:26 Urine pH 6.0 (5.0-7.0) 06/01/19 20:26 Ur Specific [place] 1.043 (1.003-1.030) H 06/01/19 20:26 Urine Protein <15 mg/dl mg/dL (Negative) 06/01/19 20:26 Urine Glucose (UA) Neg mg/dL (Negative) 06/01/19 20:26 Urine Ketones Neg mg/dL (Negative) 06/01/19 20:26 Urine Blood Neg (Negative) 06/01/19 20:26 Urine Nitrite Neg (Negative) 06/01/19 20:26 Urine Bilirubin Neg (Negative) 06/01/19 20:26 Urine Urobilinogen < 2.0 mg/dL (<2.0) 06/01/19 20:26 Ur Leukocyte Esterase Neg (Negative) 06/01/19 20:26 Urine WBC (Auto) 1.0 /HPF (0.0-6.0) 06/01/19 20:26 Urine RBC (Auto) 1.0 /HPF (0.0-6.0) 06/01/19 20:26 U Epithel Cells (Auto) < 1.0 /HPF (0-13.0) 06/01/19 20:26 Urine Mucus Few /HPF 06/01/19 20:26 Active Medications - Current Medications Current Medications: Generic Name Dose Route Start Last Admin Trade Name Freq PRN Reason Stop Dose Admin Acetaminophen 650 mg 06/01/19 21:38 Tylenol PO Q4H PRN Pain MILD(1-3)/Fever >100.5/ALAN Albuterol 2.5 mg 06/01/19 22:42 Proventil IH Q4HRT PRN Shortness Of Breath Sodium Chloride 1,000 mls @ 75 mls/hr 06/01/19 21:45 06/02/19 00:30 Nacl 0.9% 1000 Ml IV 75 mls/hr DIRECT DOLLY Administration Morphine Sulfate 2 mg 06/01/19 21:43 06/02/19 04:47 Morphine IV 2 mg Q4H PRN Administration Pain, Moderate (4-6) Ondansetron HCl 4 mg 06/01/19 21:38 Zofran IV Q6H PRN Nausea And Vomiting Sodium Chloride 10 ml 06/01/19 22:00 06/01/19 22:04 Sodium Chloride Flush Syringe 10 Ml IV 10 ml BID DOLLY Administration Sodium Chloride 10 ml 06/01/19 21:38 Sodium Chloride Flush Syringe 10 Ml IV PRN PRN LINE FLUSH
--- NOTE | 2019-06-02 10:00 | Gastroenterology Consultation ---
History of Present Illness - Reason for Consult Consult date: 06/02/19 abdominal pain, mesenteric mass Requesting physician: STEPHANIE MARRUFO - History of Present Illness this is a 78 yo [place] speaking female with pmh of HTN and lung cancer with mets to liver s/p treatment with surgery years ago admitted overnight for abdominal pain, weight loss, and CT findings of mesenteric mass, concerning for mets/adenopathy. History obtained via family translating and per family. Patient was diagnosed with lung cancer and underwent surgery several years ago and was recommended for pill medication post surgery but patient declined due to potential side effects. Per family, they were told that she had 8 months to live at that time. She has not followed up with oncologist for several years. They do not know the name of the medical facility that the treatment was done or the oncologist. She has been losing a lot of weight but unknown amount and has had lower abdominal pain for 1-2 weeks but worsen over the past 3 days. No nausea/vomiting. medication list reviewed. Past History Past Medical History: cancer (lung ca with mets to liver (approx 6yrs ago in 2012)), hypertension Past Surgical History: Other (s/p partial liver resection, umbilical removed, kidney removal) Social history: lives with family, full code Family history: no significant family history Medications and Allergies Allergies Allergy/AdvReac Type Severity Reaction Status Date / Time pork derived (porcine) AdvReac Hives Verified 06/01/19 17:23 Home Medications Medication Instructions Recorded Confirmed Last Taken Type Unobtainable 06/01/19 06/01/19 Unknown History Active Meds: Active Medications Acetaminophen (Tylenol) 650 mg PO Q4H PRN PRN Reason: Pain MILD(1-3)/Fever >100.5/ALAN Albuterol (Proventil) 2.5 mg IH Q4HRT PRN PRN Reason: Shortness Of Breath Sodium Chloride (Nacl 0.9% 1000 Ml) 1,000 mls @ 75 mls/hr IV DIRECT DOLLY Last Admin: 06/02/19 00:30 Dose: 75 mls/hr Documented by: Morphine Sulfate (Morphine) 2 mg IV Q4H PRN PRN Reason: Pain, Moderate (4-6) Last Admin: 06/02/19 04:47 Dose: 2 mg Documented by: Ondansetron HCl (Zofran) 4 mg IV Q6H PRN PRN Reason: Nausea And Vomiting Sodium Chloride (Sodium Chloride Flush Syringe 10 Ml) 10 ml IV BID DOLLY Last Admin: 06/02/19 09:53 Dose: 10 ml Documented by: Sodium Chloride (Sodium Chloride Flush Syringe 10 Ml) 10 ml IV PRN PRN PRN Reason: LINE FLUSH Review of Systems - Review of Systems Constitutional: weight loss Cardiovascular: no chest pain Respiratory: cough, shortness of breath Gastrointestinal: abdominal pain, no nausea, no vomiting, no diarrhea, no constipation Neurological: weakness Exam - Constitutional Vital Signs: Temp Pulse Resp BP Pulse Ox 99.4 F 80 20 127/50 92 06/02/19 08:09 06/02/19 08:09 06/02/19 08:27 06/02/19 08:09 06/02/19 08:09 General appearance: no acute distress - EENT ENT: hearing intact - Neck Neck: supple - Respiratory Respiratory effort: normal - Cardiovascular Rhythm: regular Heart Sounds: Present: S1 & S2 - Gastrointestinal General gastrointestinal: Present: soft, tender (RLQ), non-distended - Integumentary Integumentary: Present: clear, warm - Labs CBC & Chem 7: 06/02/19 06:02 06/02/19 06:02 Lab Results: Laboratory Results - last 24 hr 06/01/19 06/01/19 06/01/19 18:22 18:22 20:26 WBC 5.1 RBC 4.72 Hgb 15.6 H Hct 46.8 H MCV 99 H MCH 33 H MCHC 33 RDW 13.7 Plt Count 191 Lymph % (Auto) [place] % (Auto) Commercial Insulator Eos % (Auto) Baso % (Auto) Lymph # [place] # Eos # Baso # Add Manual Diff Complete Total Counted 100 Seg Neutrophils % Seg Neuts % (Manual) 68.0 Band Neutrophils % 0 Lymphocytes % (Manual) 18.0 Reactive Lymphs % (Man) 0 Monocytes % (Manual) 13.0 H Eosinophils % (Manual) 1.0 Basophils % (Manual) 0 Metamyelocytes % 0 Myelocytes % 0 Promyelocytes % 0 Blast Cells % 0 Nucleated RBC % Not Reportable Seg Neutrophils # Seg Neutrophils # Man 3.5 Band Neutrophils # 0.0 Lymphocytes # (Manual) 0.9 L Abs React Lymphs (Man) 0.0 Monocytes # (Manual) 0.7 Eosinophils # (Manual) 0.1 Basophils # (Manual) 0.0 Metamyelocytes # 0.0 Myelocytes # 0.0 Promyelocytes # 0.0 Blast Cells # 0.0 WBC Morphology Not Reportable Hypersegmented Neuts Not Reportable Hyposegmented Neuts Not Reportable Hypogranular Neuts Not Reportable Smudge Cells Not Reportable Toxic Granulation Not Reportable Toxic Vacuolation Not Reportable Dohle Bodies Not Reportable Pelger-Huet Anomaly Not Reportable Zoila Rods Not Reportable Platelet Estimate Not Reportable Clumped Platelets Not Reportable Plt Clumps, EDTA Not Reportable Large Platelets Not Reportable Giant Platelets Not Reportable Platelet Satelliting Not Reportable Plt Morphology Comment Not Reportable RBC Morphology Normal Dimorphic RBCs Not Reportable Polychromasia Not Reportable Hypochromasia Not Reportable Poikilocytosis Not Reportable Anisocytosis Not Reportable Microcytosis Not Reportable Macrocytosis Not Reportable Spherocytes Not Reportable Pappenheimer Bodies Not Reportable Sickle Cells Not Reportable Target Cells Not Reportable Tear Drop Cells Not Reportable Ovalocytes Not Reportable Helmet Cells Not Reportable [place] Bodies Not Reportable [place] Rings Not Reportable Ivy Cells Not Reportable Bite Cells Not Reportable Crenated Cell Not Reportable Elliptocytes Not Reportable Acanthocytes (Spur) Not Reportable Rouleaux Not Reportable Hemoglobin C Crystals Not Reportable Schistocytes Not Reportable Malaria parasites Not Reportable [place] Bodies Not Reportable Hem Pathologist Commnt No Sodium 133 L Potassium 4.2 Chloride 95.4 L Carbon Dioxide 21 L Anion Gap 21 BUN 24 H Creatinine 0.8 Estimated GFR > 60 BUN/Creatinine Ratio 30 Glucose 137 H Calcium 9.5 Total Bilirubin 0.60 Direct Bilirubin < 0.2 Indirect Bilirubin 0.4 AST 33 ALT 19 Alkaline Phosphatase 86 Total Protein 7.5 Albumin 3.6 L Albumin/Globulin Ratio 0.9 Lipase 56 Urine Color Yellow Urine Turbidity Clear Urine pH 6.0 Ur Specific [place] 1.043 H Urine Protein <15 mg/dl Urine Glucose (UA) Neg Urine Ketones Neg Urine Blood Neg Urine Nitrite Neg Urine Bilirubin Neg Urine Urobilinogen < 2.0 Ur Leukocyte Esterase Neg Urine WBC (Auto) 1.0 Urine RBC (Auto) 1.0 U Epithel Cells (Auto) < 1.0 Urine Mucus Few 06/02/19 06/02/19 06:02 06:02 WBC 5.9 RBC 4.69 Hgb 15.5 H Hct 46.9 H MCV 100 H MCH 33 H MCHC 33 RDW 13.6 Plt Count 183 Lymph % (Auto) 10.7 L [place] % (Auto) 15.2 H Eos % (Auto) 0.3 Baso % (Auto) 0.8 Lymph # 0.6 L [place] # 0.9 H Eos # 0.0 Baso # 0.0 Add Manual Diff Total Counted Seg Neutrophils % 73.0 H Seg Neuts % (Manual) Band Neutrophils % Lymphocytes % (Manual) Reactive Lymphs % (Man) Monocytes % (Manual) Eosinophils % (Manual) Basophils % (Manual) Metamyelocytes % Myelocytes % Promyelocytes % Blast Cells % Nucleated RBC % Seg Neutrophils # 4.3 Seg Neutrophils # Man Band Neutrophils # Lymphocytes # (Manual) Abs React Lymphs (Man) Monocytes # (Manual) Eosinophils # (Manual) Basophils # (Manual) Metamyelocytes # Myelocytes # Promyelocytes # Blast Cells # WBC Morphology Hypersegmented Neuts Hyposegmented Neuts Hypogranular Neuts Smudge Cells Toxic Granulation Toxic Vacuolation Dohle Bodies Pelger-Huet Anomaly Zoila Rods Platelet Estimate Clumped Platelets Plt Clumps, EDTA Large Platelets Giant Platelets Platelet Satelliting Plt Morphology Comment RBC Morphology Dimorphic RBCs Polychromasia Hypochromasia Poikilocytosis Anisocytosis Microcytosis Macrocytosis Spherocytes Pappenheimer Bodies Sickle Cells Target Cells Tear Drop Cells Ovalocytes Helmet Cells [place] Bodies [place] Rings [place] Cells Bite Cells Crenated Cell Elliptocytes Acanthocytes (Spur) Rouleaux Hemoglobin C Crystals Schistocytes Malaria parasites Kerwin Bodies Hem Pathologist Commnt Sodium 139 Potassium 4.6 Chloride 101.8 Carbon Dioxide 26 Anion Gap 16 BUN 19 H Creatinine 0.8 Estimated GFR > 60 BUN/Creatinine Ratio 24 Glucose 115 H Calcium 9.2 Total Bilirubin Direct Bilirubin Indirect Bilirubin AST ALT Alkaline Phosphatase Total Protein Albumin Albumin/Globulin Ratio Lipase Urine Color Urine Turbidity Urine pH Ur Specific [place] Urine Protein Urine Glucose (UA) Urine Ketones Urine Blood Urine Nitrite Urine Bilirubin Urine Urobilinogen Ur Leukocyte Esterase Urine WBC (Auto) Urine RBC (Auto) U Epithel Cells (Auto) Urine Mucus - Imaging CT Scan: report reviewed Assessment and Plan a 78 yo [place] speaking female with pmh of HTN and lung cancer with mets to liver s/p treatment with surgery years ago admitted overnight for abdominal pain, weight loss, and CT findings of mesenteric mass, concerning for mets/adenopathy. # Mesenteric necrotic mass: seen on CT a/p in the root of the mesentery anterior to the aorta and IVC, concerning for mets/adenopathy. - CT also showed multiple lung nodules in the bases. - likely the cause of her abdominal pain and concern for mets given prior h/o lung cancer. Unclear treatment history. Rec - recommend oncology consult. - may need CT lungs for further evaluation for lung nodules. - no plans for endoscopy at this time. - will sign off at this time. will be available as needed. please call with questions.
--- NOTE | 2019-06-02 11:33 | Consultation ---
History of Present Illness Consult date: 06/02/19 Requesting physician: STEPHANIE MARRUFO Consult reason: atrial fibrillation History of present illness: Ms. Vazquez is a 71 y/o female with a history of hypertension and metastatic liver cancer who presented to [facility] on 06/01/19 with abdominal pain for two weeks. She does not see a fish roe technician regularly. We were consulted today after the patient's rhythm became afib with RVR. Her SBP dropped into the 90s, but otherwise, she is asymptomatic on examination. Past History Past Medical History: cancer (lung ca with mets to liver (approx 6yrs ago in 2012)), hypertension Past Surgical History: Other (s/p partial liver resection, umbilical removed, kidney removal) Social history: lives with family, full code Family history: no significant family history Medications and Allergies Allergies Allergy/AdvReac Type Severity Reaction Status Date / Time pork derived (porcine) AdvReac Hives Verified 06/01/19 17:23 Home Medications Medication Instructions Recorded Confirmed Last Taken Type Unobtainable 06/01/19 06/01/19 Unknown History Active Meds: Active Medications Acetaminophen (Tylenol) 650 mg PO Q4H PRN PRN Reason: Pain MILD(1-3)/Fever >100.5/ALAN Albuterol (Proventil) 2.5 mg IH Q4HRT PRN PRN Reason: Shortness Of Breath Sodium Chloride (Nacl 0.9% 1000 Ml) 1,000 mls @ 75 mls/hr IV DIRECT DOLLY Last Admin: 06/02/19 00:30 Dose: 75 mls/hr Documented by: Amiodarone HCl 150 mg/ Sodium (Chloride) 100 mls @ 600 mls/hr IV ONCE ONE Stop: 06/02/19 12:09 Amiodarone HCl 150 mg/ (Dextrose) 100 mls @ 600 mls/hr IV ONCE ONE Stop: 06/02/19 11:24 Amiodarone HCl 900 mg/ (Dextrose) 500 mls @ 33.333 mls/hr IV DIRECT DOLLY; Protocol Morphine Sulfate (Morphine) 2 mg IV Q4H PRN PRN Reason: Pain, Moderate (4-6) Last Admin: 06/02/19 04:47 Dose: 2 mg Documented by: Ondansetron HCl (Zofran) 4 mg IV Q6H PRN PRN Reason: Nausea And Vomiting Sodium Chloride (Sodium Chloride Flush Syringe 10 Ml) 10 ml IV BID [facility] Last Admin: 06/02/19 09:53 Dose: 10 ml Documented by: Sodium Chloride (Sodium Chloride Flush Syringe 10 Ml) 10 ml IV PRN PRN PRN Reason: LINE FLUSH Review of Systems All systems: negative Cardiovascular: rapid/irregular heart beat Physical Examination Last Vital Signs Temp 99.4 F 06/02/19 08:09 Pulse 122 H 06/02/19 11:04 Resp 18 06/02/19 11:04 BP 95/55 06/02/19 11:04 Pulse Ox 90 06/02/19 11:04 General appearance: other (generally ill-appearing) HEENT: Positive: PERRL Neck: Positive: neck supple Cardiac: Positive: irregularly irregular Lungs: Positive: Decreased Breath Sounds Neuro: Positive: Grossly Intact Abdomen: Positive: Tender Female genitourinary: deferred Skin: Positive: Clear Musculoskeletal: Decreased Range of Motion Extremities: Present: normal Results 06/02/19 06:02 06/02/19 06:02 Cardiac Enzymes 06/01/19 Range/Units 18:22 AST 33 (5-40) units/L CBC 06/01/19 06/02/19 Range/Units 18:22 06:02 WBC 5.1 5.9 (4.5-11.0) K/mm3 RBC 4.72 4.69 (3.65-5.03) M/mm3 Hgb 15.6 H 15.5 H (10.1-14.3) gm/dl Hct 46.8 H 46.9 H (30.3-42.9) % Plt Count 191 183 (140-440) K/mm3 Lymph # 0.6 L (1.2-5.4) K/mm3 [place] # 0.9 H (0.0-0.8) K/mm3 Eos # 0.0 (0.0-0.4) K/mm3 Baso # 0.0 (0.0-0.1) K/mm3 Comprehensive Metabolic Panel 06/01/19 06/02/19 Range/Units 18:22 06:02 Sodium 133 L 139 (137-145) mmol/L Potassium 4.2 4.6 (3.6-5.0) mmol/L Chloride 95.4 L 101.8 (98-107) mmol/L Carbon Dioxide 21 L 26 (22-30) mmol/L BUN 24 H 19 H (7-17) mg/dL Creatinine 0.8 0.8 (0.7-1.2) mg/dL Glucose 137 H 115 H (65-100) mg/dL Calcium 9.5 9.2 (8.4-10.2) mg/dL Direct Bilirubin < 0.2 (0-0.2) mg/dL Indirect Bilirubin 0.4 mg/dL AST 33 (5-40) units/L ALT 19 (7-56) units/L Alkaline Phosphatase 86 (35-129) units/L Total Protein 7.5 (6.3-8.2) g/dL Albumin 3.6 L (3.9-5) g/dL - Imaging and Cardiology Echo: pending EKG interpretations - EKG Supraventricular dysrhythmia: atrial fibrillation Assessment and Plan Ms. Vazquez is a 78 y/o female admitted for abdominal pain who abruptly flipped into afib with RVR. Will transfer to telemetry and give amiodarone bolus and drip. If she does not convert to SR, will consider anticoagulation. Will also obtain echocardiogram. Further recommendations pending hospital course. The patient has been seen in conjunction with Dr. Alcala, who agrees with the assessment and plan. - Patient Problems (1) Atrial fibrillation with RVR Current Visit: Yes Status: Acute (2) Abdominal pain Current Visit: Yes Status: Acute Qualifiers: Abdominal location: generalized Qualified Code(s): R10.84 - Generalized abdominal pain (3) Hypertension Current Visit: Yes Status: Chronic (4) Metastatic disease Current Visit: Yes Status: Chronic
[2019-06-02] MEDS ORDERED: SODIUM CHLORIDE 0.9% IV ONE (12:00)
[2019-06-02] MEDS ORDERED: AMIODARONE 150 MG in DEXTROSE 5% IN WATER 97 ML IV ONE (12:00)
[2019-06-02] MEDS ORDERED: AMIODARONE 150 MG/3 ML INJ IV ONE (12:00)
[2019-06-02] MEDS ORDERED: AMIODARONE IV ONE (12:00)
--- NOTE | 2019-06-02 14:07 | Consultation ---
History of Present Illness Consult date: 06/02/19 Reason for consult: abdominal pain Requesting physician: STEPHANIE MARRUFO Chief complaint: lower abdominal pain - History of present illness History of present illness: 78-year-old speaking female with history of hypertension and kidney cancer with mets to lung who presents to [facility] ED with complaints of abdominal pain for the past 2 weeks. Pt's granddaughter are present at bedside. Pt has requested that they translate and assist in providing history. Pt has been experiencing intermittent 4/10 dull abdominal pain for the past 2 weeks which has progressively worsened over the past 3 days. Her pain is now persistent and has intensified. She rates her pain 9/10. Her pain is in the lower abdomen. There are no aggravating, and is relieved with IV pain meds. She denies F/Cn/v. She is able to eat. Daughter reports that she was treated here about 8 years ago for the kidney c ancer. She says that a "Dr. Portillo" took care of her. Supposedly, widespread cancer was found at that time. She declined chemotherapy at that time. She has not been followed by oncology. Her pain is primarily in the lower abdomen. Past History Past Medical History: cancer (Kidney cancer with lung mets - tx'd here at [facility] about 8 years ago), hypertension Past Surgical History: Other (s/p right kidney removal) Social history: lives with family, full code. denies: smoking, alcohol abuse Family history: no significant family history Medications and Allergies Allergies Allergy/AdvReac Type Severity Reaction Status Date / Time pork derived (porcine) AdvReac Hives Verified 06/01/19 17:23 Home Medications Medication Instructions Recorded Confirmed Last Taken Type Unobtainable 06/01/19 06/01/19 Unknown History Active Meds: Active Medications Acetaminophen (Tylenol) 650 mg PO Q4H PRN PRN Reason: Pain MILD(1-3)/Fever >100.5/ALAN Albuterol (Proventil) 2.5 mg IH Q4HRT PRN PRN Reason: Shortness Of Breath Sodium Chloride (Nacl 0.9% 1000 Ml) 1,000 mls @ 75 mls/hr IV DIRECT DOLLY Last Admin: 06/02/19 00:30 Dose: 75 mls/hr Documented by: Amiodarone HCl 900 mg/ (Dextrose) 500 mls @ 33.333 mls/hr IV DIRECT DOLLY; Protocol Morphine Sulfate (Morphine) 2 mg IV Q4H PRN PRN Reason: Pain, Moderate (4-6) Last Admin: 06/02/19 04:47 Dose: 2 mg Documented by: Ondansetron HCl (Zofran) 4 mg IV Q6H PRN PRN Reason: Nausea And Vomiting Sodium Chloride (Sodium Chloride Flush Syringe 10 Ml) 10 ml IV BID DOLLY Last Admin: 06/02/19 09:53 Dose: 10 ml Documented by: Sodium Chloride (Sodium Chloride Flush Syringe 10 Ml) 10 ml IV PRN PRN PRN Reason: LINE FLUSH Review of Systems - Constitutional chronic pain, no fever, no chills - Cardiovascular no chest pain, no shortness of breath - Respiratory no cough - Gastrointestinal abdominal pain, no nausea, no vomiting, no diarrhea, no constipation, no change in bowel habits, no hematemesis, no coffee ground emesis, no BRBPR, no melena, no hematochezia - Integumentary no rash, no sores, no wounds Exam Vital Signs Temp Pulse Resp BP Pulse Ox 98.3 F 61 20 122/46 92 06/01/19 17:28 06/01/19 17:28 06/01/19 17:28 06/01/19 17:28 06/01/19 17:28 - General physical appearance Positive: no distress, no pain, obese, other (elderly woman. Pleasant. [place] speaking only) - Eyes Positive: normal occular movement - Respiratory Positive: normal expansion, normal respiratory effort - Cardiovascular Rhythm: regular (tachy) - Abdomen Abdomen: Present: soft, surgical scars (right subcostal incision). Absent: tender, distended, masses, guarding, rigid, wound - Integumentary no rash, no growths, no abnormal pigmentation - Neurologic Neurologic: alert and oriented to time, place and person - Psychiatric Psychiatric: appropriate mood/affect, intact judgment & insight, cooperative Results - Labs 06/02/19 06:02 06/02/19 06:02 Abnormal lab results 06/01/19 06/01/19 06/01/19 Range/Units 18:22 18:22 20:26 Hgb 15.6 H (10.1-14.3) gm/dl Hct 46.8 H (30.3-42.9) % MCV 99 H (79-97) fl MCH 33 H (28-32) pg Lymph % (Auto) (13.4-35.0) % [place] % (Auto) (0.0-7.3) % Lymph # (1.2-5.4) K/mm3 [place] # (0.0-0.8) K/mm3 Seg Neutrophils % (40.0-70.0) % Monocytes % (Manual) 13.0 H (0.0-7.3) % Lymphocytes # (Manual) 0.9 L (1.2-5.4) K/mm3 Sodium 133 L (137-145) mmol/L Chloride 95.4 L (98-107) mmol/L Carbon Dioxide 21 L (22-30) mmol/L BUN 24 H (7-17) mg/dL Glucose 137 H (65-100) mg/dL Albumin 3.6 L (3.9-5) g/dL Ur Specific [place] 1.043 H (1.003-1.030) 06/02/19 06/02/19 Range/Units 06:02 06:02 Hgb 15.5 H (10.1-14.3) gm/dl Hct 46.9 H (30.3-42.9) % MCV 100 H (79-97) fl MCH 33 H (28-32) pg Lymph % (Auto) 10.7 L (13.4-35.0) % [place] % (Auto) 15.2 H (0.0-7.3) % Lymph # 0.6 L (1.2-5.4) K/mm3 [place] # 0.9 H (0.0-0.8) K/mm3 Seg Neutrophils % 73.0 H (40.0-70.0) % Monocytes % (Manual) (0.0-7.3) % Lymphocytes # (Manual) (1.2-5.4) K/mm3 Sodium (137-145) mmol/L Chloride (98-107) mmol/L Carbon Dioxide (22-30) mmol/L BUN 19 H (7-17) mg/dL Glucose 115 H (65-100) mg/dL Albumin (3.9-5) g/dL Ur Specific [place] (1.003-1.030) Diabetes panel 06/01/19 06/02/19 Range/Units 18:22 06:02 Sodium 133 L 139 (137-145) mmol/L Potassium 4.2 4.6 (3.6-5.0) mmol/L Chloride 95.4 L 101.8 (98-107) mmol/L Carbon Dioxide 21 L 26 (22-30) mmol/L BUN 24 H 19 H (7-17) mg/dL Creatinine 0.8 0.8 (0.7-1.2) mg/dL Glucose 137 H 115 H (65-100) mg/dL Calcium 9.5 9.2 (8.4-10.2) mg/dL AST 33 (5-40) units/L ALT 19 (7-56) units/L Alkaline Phosphatase 86 (35-129) units/L Total Protein 7.5 (6.3-8.2) g/dL Albumin 3.6 L (3.9-5) g/dL Calcium panel 06/01/19 06/02/19 Range/Units 18:22 06:02 Calcium 9.5 9.2 (8.4-10.2) mg/dL Albumin 3.6 L (3.9-5) g/dL Pituitary panel 06/01/19 06/02/19 Range/Units 18:22 06:02 Sodium 133 L 139 (137-145) mmol/L Potassium 4.2 4.6 (3.6-5.0) mmol/L Chloride 95.4 L 101.8 (98-107) mmol/L Carbon Dioxide 21 L 26 (22-30) mmol/L BUN 24 H 19 H (7-17) mg/dL Creatinine 0.8 0.8 (0.7-1.2) mg/dL Glucose 137 H 115 H (65-100) mg/dL Calcium 9.5 9.2 (8.4-10.2) mg/dL Adrenal panel 06/01/19 06/02/19 Range/Units 18:22 06:02 Sodium 133 L 139 (137-145) mmol/L Potassium 4.2 4.6 (3.6-5.0) mmol/L Chloride 95.4 L 101.8 (98-107) mmol/L Carbon Dioxide 21 L 26 (22-30) mmol/L BUN 24 H 19 H (7-17) mg/dL Creatinine 0.8 0.8 (0.7-1.2) mg/dL Glucose 137 H 115 H (65-100) mg/dL Calcium 9.5 9.2 (8.4-10.2) mg/dL Total Bilirubin 0.60 (0.1-1.2) mg/dL AST 33 (5-40) units/L ALT 19 (7-56) units/L Alkaline Phosphatase 86 (35-129) units/L Total Protein 7.5 (6.3-8.2) g/dL Albumin 3.6 L (3.9-5) g/dL - Imaging CT scan - abdomen: report reviewed, image reviewed CT scan - pelvis: report reviewed, image reviewed Assessment and Plan - Patient Problems (1) Abdominal pain Current Visit: Yes Status: Acute Qualifiers: Abdominal location: lower abdomen, unspecified Qualified Code(s): R10.30 - Lower abdominal pain, unspecified Plan to address problem: Pt stable. Patient does not require any urgent surgical intervention. I think there are a few separate issues to address. 1) abnormal mass on CT- based on the history that was provided by the daughter, it seems more consistent that the patient had an advanced right renal cancer. The right kidney is clearly gone on CT. The clips that are seen are consistent with a right nephrectomy. The mass is retroperitoneal in appearance and would be consistent with where the renal vessels were divided. This is either a necrotic tumor or necrotic lymph nodes. Neither of which require any urgent surgical intervention. Lung metastases are common with renal cancer and I think this whole picture is consistent with a primary renal cancer. If further information/guidance is desired, then a consultation with Dr. Fair may be beneficial as he may have been the original surgeon that they are talking about. 2) Lower abdominal pain - the location of the pain and the mass on CT do not correlate. My presumption is the lower abdominal pain is related to metastatic lesions on the peritoneum. At this point, would manage that with pain medication. 3) Metastatic cancer - agree with plan for oncology consultation. Could be done as an out-pt. They can evaluate and see if any cancer treatment at this point would be of use. I had also mentioned to family that palliative care should be considered. I think it would be useful for them to have a consultation as an outpatient with palliative care. Will be available if needed. Please call with questions. time=45min
[2019-06-02] MEDS: AMIODARONE 900 MG in DEXTROSE 5% IN WATER 482 ML IV SCH ×2 (15:00→21:27)
--- NOTE | 2019-06-02 19:08 | Consultation ---
History of Present Illness Consult date: 06/02/19 History of present illness: PULMONARY AND CRITICAL CARE CONSULTATION. DR. MARRUFO THANK YOU FOR ASKING US TO PARTICIPATE IN THE CARE OF THIS PATIENT. 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 Pt's granddaughter are present at bedside. Pt has been experiencing intermittent 4/10 dull abdominal pain for the past 2 weeks which has progressively worsened over the past 3 days. Her pain is now persistent and has intensified. She rates her pain 9/10. Her pain in diffuse. There are no aggravating, and is relieved with IV pain meds. She denies nausea and vomiting. Denies chest pain, shortness of breath or cough or hemoptysis. Patient apetie is not good. She has been loosing some weight. Patient has history of kidney cancer operated several years ago.Patients abdominal CAT scan obtained reported pulm onary nodules. Obtaining chest xray and full CAT scan of chest. Patient has no history of smoking, alcohol or drug abuse. Never worked out side the house. Patient is . She has 8 children. Allergic to Pork derived products. Patient resting on 3 litres O2. Obtaining ABGs. Past History Past Medical History: cancer (lung ca with mets to liver (approx 6yrs ago in 2012)), hypertension Past Surgical History: Other (s/p partial liver resection, umbilical removed, kidney removal) Social history: lives with family, full code Family history: no significant family history Medications and Allergies Allergies Allergy/AdvReac Type Severity Reaction Status Date / Time pork derived (porcine) AdvReac Hives Verified 06/01/19 17:23 Home Medications Medication Instructions Recorded Confirmed Last Taken Type Unobtainable 06/01/19 06/01/19 Unknown History Active Meds: Active Medications Acetaminophen (Tylenol) 650 mg PO Q4H PRN PRN Reason: Pain MILD(1-3)/Fever >100.5/ALAN Albuterol (Proventil) 2.5 mg IH Q4HRT PRN PRN Reason: Shortness Of Breath Sodium Chloride (Nacl 0.9% 1000 Ml) 1,000 mls @ 75 mls/hr IV DIRECT DOLLY Last Admin: 06/02/19 17:54 Dose: 75 mls/hr Documented by: Amiodarone HCl 900 mg/ (Dextrose) 500 mls @ 33.333 mls/hr IV DIRECT DOLLY; Protocol Last Admin: 06/02/19 15:00 Dose: 1 mg/min, 33.333 mls/hr Documented by: Morphine Sulfate (Morphine) 2 mg IV Q4H PRN PRN Reason: Pain, Moderate (4-6) Last Admin: 06/02/19 17:49 Dose: 2 mg Documented by: Ondansetron HCl (Zofran) 4 mg IV Q6H PRN PRN Reason: Nausea And Vomiting Sodium Chloride (Sodium Chloride Flush Syringe 10 Ml) 10 ml IV BID DOLLY Last Admin: 06/02/19 09:53 Dose: 10 ml Documented by: Sodium Chloride (Sodium Chloride Flush Syringe 10 Ml) 10 ml IV PRN PRN PRN Reason: LINE FLUSH Review of Systems All systems: negative Physical Examination Vital signs: Vital Signs Temp Pulse Resp BP Pulse Ox 98.3 F 61 20 122/46 92 06/01/19 17:28 06/01/19 17:28 06/01/19 17:28 06/01/19 17:28 06/01/19 17:28 General appearance: no acute distress, alert, other (Morbidly Obese.) Eyes: non-icteric ENT: oropharynx moist Neck: supple, no JVD Ascultation: Bilateral: diminished breath sounds Cardiovascular: irregular rhythm Gastrointestinal: hypoactive bowel sounds, tender Extremities: no cyanosis, no edema Musculoskeletal: no deformities Gait: other (Can not evaluate now.) normal mental status, non-focal exam, pupils equal and round, CN II-XII normal depressed Results - Laboratory Findings CBC and BMP: 06/02/19 06:02 06/02/19 06:02 Abnormal lab findings: Abnormal Labs 06/01/19 06/01/19 06/01/19 18:22 18:22 20:26 Hgb 15.6 H Hct 46.8 H MCV 99 H MCH 33 H Lymph % (Auto) [place] % (Auto) Lymph # [place] # Seg Neutrophils % Monocytes % (Manual) 13.0 H Lymphocytes # (Manual) 0.9 L Sodium 133 L Chloride 95.4 L Carbon Dioxide 21 L BUN 24 H Glucose 137 H Albumin 3.6 L Ur Specific [place] 1.043 H 06/02/19 06/02/19 06:02 06:02 Hgb 15.5 H Hct 46.9 H MCV 100 H MCH 33 H Lymph % (Auto) 10.7 L [place] % (Auto) 15.2 H Lymph # 0.6 L [place] # 0.9 H Seg Neutrophils % 73.0 H Monocytes % (Manual) Lymphocytes # (Manual) Sodium Chloride Carbon Dioxide BUN 19 H Glucose 115 H Albumin Ur Specific [place] Assessment and Plan 71-year-old speaking female with history of hypertension and Liver cancer wit mets to liver who presents to [facility] ED with complaints of abdominal pain for the past 2 weeks. Pt's granddaughter are present at bedside. Pt has been experiencing intermittent 4/10 dull abdominal pain for the past 2 weeks which has progressively worsened over the past 3 days. Her pain is now persistent and has intensified. She rates her pain 9/10. Her pain in diffuse. There are no aggravating, and is relieved with IV pain meds. She denies nausea and vomiting. Denies chest pain, shortness of breath or cough or hemoptysis. Patient apetie is not good. She has been loosing some weight. Patient has history of kidney cancer operated several years ago.Patients abdominal CAT scan obtained reported pulmonary nodules. Obtaining chest xray and full CAT scan of chest. Patient has no history of smoking, alcohol or drug abuse. Never worked out side the house. Patient is . She has 8 children. Allergic to Pork derived products. Patient resting on 3 litres O2. Obtaining ABGs. - Patient Problems (1) Mesenteric mass Current Visit: Yes Status: Acute Plan to address problem: OBtain percuneous needle biopsy for diagnosis. (2) Abdominal pain Current Visit: Yes Status: Acute Qualifiers: Abdominal location: lower abdomen, unspecified Qualified Code(s): R10.30 - Lower abdominal pain, unspecified Plan to address problem: Consult General surgery. (3) Atrial fibrillation with RVR Current Visit: Yes Status: Acute Plan to address problem: Patient is on Amiodorone. Management as per cardiology. (4) Hypertension Current Visit: Yes Status: Chronic Plan to address problem: Management as per primary care. (5) Metastatic disease Current Visit: Yes Status: Chronic Plan to address problem: Obtaining chest xray and CAT scan of chest.
[2019-06-03] MEDS: AMIODARONE 900 MG in DEXTROSE 5% IN WATER 482 ML IV SCH (04:57)
[2019-06-03] MEDS: MORPHINE 2 MG/1 ML INJ IV PRN ×2 (05:32→13:10)
--- NOTE | 2019-06-03 08:13 | Event Note ---
Date: 06/03/19 [id number]
--- NOTE | 2019-06-03 11:35 | XRay Report ---
CHEST 1 VIEW INDICATION / CLINICAL INFORMATION: lumg nodules. COMPARISON: Abdominal CT dated 06/01/2018 FINDINGS: SUPPORT DEVICES: None. HEART / MEDIASTINUM: There is prominence the cardiac silhouette LUNGS / PLEURA: There are multiple bilateral pulmonary nodules. There is a 5 cm mass or area of conso lidation in the right lower chest... No pneumothorax. ADDITIONAL FINDINGS: No significant additional findings. IMPRESSION: 1. There are multiple bilateral nodules most characteristic of metastases. Dedicated chest CT is kinza mmended to further evaluate if clinically warranted Signer Name: Brian Mark MD Signed: 06/03/2019 11:30 AM Workstation Name: [id number]
--- NOTE | 2019-06-03 13:25 | Progress Note ---
Assessment and Plan Patient alert and awake. Resting on room air at this time. O2 saturation is 92%. Patient has CT scan of the chest, showed multiple nodules. Official results are still pending. - Patient Problems (1) Mesenteric mass Current Visit: Yes Status: Acute Plan to address problem: OBtain percuneous needle biopsy for diagnosis. (2) Abdominal pain Current Visit: Yes Status: Acute Qualifiers: Abdominal location: lower abdomen, unspecified Qualified Code(s): R10.30 - Lower abdominal pain, unspecified Plan to address problem: Consult General surgery. (3) Atrial fibrillation with RVR Current Visit: Yes Status: Acute Plan to address problem: Patient is on Amiodorone. Management as per cardiology. (4) Hypertension Current Visit: Yes Status: Chronic Plan to address problem: Management as per primary care. (5) Metastatic disease Current Visit: Yes Status: Chronic Plan to address problem: CT scan of the chest showed bilateral multiple nodules. Subjective Date of service: 06/03/19 Interval history: Patient alert and awake. Resting on room air at this time. O2 saturation is 92%. Patient has CT scan of the chest, showed multiple nodules. Official results are still pending. Objective Vital Signs - 12hr 06/03/19 06/03/19 06/03/19 05:19 09:54 10:00 Temperature 99.0 F Pulse Rate 73 71 Respiratory 20 Rate Blood Pressure 134/63 O2 Sat by Pulse 90 90 Oximetry 06/03/19 06/03/19 06/03/19 10:26 12:32 13:10 Temperature 99.3 F 99.2 F Pulse Rate 71 60 Respiratory 18 18 20 Rate Blood Pressure 101/57 132/65 O2 Sat by Pulse 92 92 Oximetry Constitutional: no acute distress, alert, other (Morbidly Obese.) Eyes: non-icteric ENT: oropharynx moist Neck: supple, no JVD Ascultation: Bilateral: diminished breath sounds Cardiovascular: irregular rhythm Gastrointestinal: hypoactive bowel sounds, tender Extremities: no cyanosis, no edema Neurologic: normal mental status, non-focal exam, pupils equal and round, CN II- XII normal Psychiatric: depressed CBC and BMP: 06/02/19 06:02 06/02/19 06:02 Abnormal lab findings: Abnormal Labs 06/01/19 06/01/19 06/01/19 18:22 18:22 20:26 Hgb 15.6 H Hct 46.8 H MCV 99 H MCH 33 H Lymph % (Auto) [place] % (Auto) Lymph # [place] # Seg Neutrophils % Monocytes % (Manual) 13.0 H Lymphocytes # (Manual) 0.9 L Sodium 133 L Chloride 95.4 L Carbon Dioxide 21 L BUN 24 H Glucose 137 H Albumin 3.6 L Ur Specific [place] 1.043 H 06/02/19 06/02/19 06:02 06:02 Hgb 15.5 H Hct 46.9 H MCV 100 H MCH 33 H Lymph % (Auto) 10.7 L [place] % (Auto) 15.2 H Lymph # 0.6 L [place] # 0.9 H Seg Neutrophils % 73.0 H Monocytes % (Manual) Lymphocytes # (Manual) Sodium Chloride Carbon Dioxide BUN 19 H Glucose 115 H Albumin Ur Specific [place] CT scan - chest: image reviewed
--- NOTE | 2019-06-03 14:09 | Progress Note ---
Assessment and Plan Pt has converted to NSR. Initiate PO amio and d/c amio gtt after 2nd PO dose. Cont to observe on telemetry. No systemic AC at this time due to brief duration of single episode of AFib noted. Additionally, intermediate systemic AC may be difficult to maintain in setting of metastatic cancer. Await echo. Check thyroid profile. The patient has been seen in conjunction with Dr. Ornelas who agrees with the assessment and plan of care. - Patient Problems (1) Atrial fibrillation with RVR Current Visit: Yes Status: Acute (2) Abdominal pain Current Visit: Yes Status: Acute Qualifiers: Abdominal location: lower abdomen, unspecified Qualified Code(s): R10.30 - Lower abdominal pain, unspecified (3) Hypertension Current Visit: Yes Status: Chronic (4) Mesenteric mass Current Visit: Yes Status: Acute (5) Metastatic disease Current Visit: Yes Status: Chronic Subjective Date of service: 06/03/19 Principal diagnosis: AFib Interval history: pt resting in bed, no current complaints. amio gtt infusing. tele reviewed - in SR. Objective Last Vital Signs Temp 99.2 F 06/03/19 12:32 Pulse 60 06/03/19 12:32 Resp 20 06/03/19 13:10 BP 132/65 06/03/19 12:32 Pulse Ox 92 06/03/19 12:32 - Physical Examination General: No Apparent Distress HEENT: Positive: PERRL Neck: Positive: neck supple Cardiac: Positive: Reg Rate and Rhythm, S1/S2 Lungs: Positive: Decreased Breath Sounds Neuro: Positive: Grossly Intact Abdomen: Positive: Tender Skin: Positive: Clear Musculoskeletal: Decreased Range of Motion Extremities: Present: normal - Imaging and Cardiology Echo: pending
--- NOTE | 2019-06-03 14:27 | Progress Note ---
Assessment and Plan Assessment and plan: Patient is a 71-year-old speaking female with history of hypertension and Liver cancer wit mets to liver who presents to [facility] with complaints of abdominal pain for the past 2 weeks. Pt's granddaughter are present at bedside. Pt has requested that they translate and assist in providing history. Pt has been experiencing intermittent 4/10 dull abdominal pain for the past 2 weeks which has progressively worsened over the past 3 days. Her pain is now persistent and has intensified. She rates her pain 9/10. Her pain in diffuse. There are no aggravating, and is relieved with IV pain meds. She denies n/v. It appears patient had bladder cancer with mets and had nephrectomy but did not come back for chemo and now the cancer has come back. * CT Abdomen/Pelvis IMPRESSION: 1. Innumerable bilateral, right greater than left, pulmonary nodules and masses in the visualized lower lungs suggesting metastatic disease. 2. Necrotic mass in the root of the mesentery anterior to the aorta and IVC, also likely metastatic lesion/adenopathy. Acute abdominal pain with Mesenteric mass -CT Abdomen/Pelvis shows: Necrotic mass in the root of the mesentery anterior to the aorta and IVC, also likely metastatic lesion/adenopathy -Hx of lung cancer with mets to liver, s/p partial liver (approx 6 yrs ago) - Received IV Zosyn in ED -Continue supportive care -GI consulted -General Surgery Consulted -Heme/Onc consulted -consulted IR to evaluate for biospy Bilateral Pulmonary Nodules (Innumerable) - R>L pulmonary nodules and masses in the visualized lower lungs suggesting metastatic disease -Hx of Lung cancer with mets to liver -Denies hx of chemo therapy or radiation -Pulmonary Consulted --Heme/Onc consulted Acute Hypoxic Respiratory Failure -No Baseline home oxygen requirements -Saturations in mid 80's on RA -Currently on supplemental -Monitor saturations -Continue supplemental oxygen wean as tolerated [id number] on admission 133-Slowly correct Na with IVF-Continue to monitor replete prn Hx HTN-Currnently noromotensive-Denies use of antihypertensive meds-Monitor BP DVT PPX-Hold off on systemic anticoagulation d/t metastatic disease-SCD's AFib with RVR, proven by EKG: consulted and notified Dr. Alcala. moved to [facility], on Amiodarone drip to po H/O Bladder cancer: consulted and d/w Dr. Portillo, he will see in AM Disposition: continue inpatient care, ECHO pending, Urology evaluation pending, IR for bx, rate control on Amiodarone History Interval history: Patient was seen and examined. Follow-up on current diagnosis. No overnight events reported to me. Patient denies any chest pain, shortness breath, nausea/vomiting or severe headaches. Imaging, nursing note, chart, labs and old chart reviewed. Discussed with patient. Daughters Ruth and Vianey interpreted. Vianey knows more about health history Hospitalist Physical - Physical exam Narrative exam: Gen: WDWN, NAD, Awake, Alert, Orientated HEENT: NCAT, EOMI, PERRL, OP Clear Neck: supple, no adenopathy, no thyromegaly, no JVD CVS/Heart: irregular irregular normal S1S2, pulses present bilaterally Chest/Lungs: diminished bs bilaterally Symmetrical chest expansion, good air entry bilaterally GI/Abdomen: soft, diffuse tenderness right to suprapubic area, good bowel sounds, no guarding or rebound /Bladder: no suprapubic tenderness, no CVA or paraspinal tenderness Extermity/Skin: no c/c/e, no obvious rash MSK: FROM x 4 Neuro: CN 2-12 grossly intact, no new focal deficits Psych: calm - Constitutional Vitals: Temp Pulse Resp BP Pulse Ox 99.2 F 60 20 132/65 92 06/03/19 12:32 06/03/19 12:32 06/03/19 13:10 06/03/19 12:32 06/03/19 12:32 General appearance: Present: other (generally ill-appearing) Results - Labs CBC & Chem 7: 06/02/19 06:02 06/02/19 06:02 Labs: Laboratory Last Values WBC 5.9 K/mm3 (4.5-11.0) 06/02/19 06:02 RBC 4.69 M/mm3 (3.65-5.03) 06/02/19 06:02 Hgb 15.5 gm/dl (10.1-14.3) H 06/02/19 06:02 Hct 46.9 % (30.3-42.9) H 06/02/19 06:02 MCV 100 fl (79-97) H 06/02/19 06:02 MCH 33 pg (28-32) H 06/02/19 06:02 MCHC 33 % (30-34) 06/02/19 06:02 RDW 13.6 % (13.2-15.2) 06/02/19 06:02 Plt Count 183 K/mm3 (140-440) 06/02/19 06:02 Lymph % (Auto) 10.7 % (13.4-35.0) L 06/02/19 06:02 [place] % (Auto) 15.2 % (0.0-7.3) H 06/02/19 06:02 Eos % (Auto) 0.3 % (0.0-4.3) 06/02/19 06:02 Baso % (Auto) 0.8 % (0.0-1.8) 06/02/19 06:02 Lymph # 0.6 K/mm3 (1.2-5.4) L 06/02/19 06:02 [place] # 0.9 K/mm3 (0.0-0.8) H 06/02/19 06:02 Eos # 0.0 K/mm3 (0.0-0.4) 06/02/19 06:02 Baso # 0.0 K/mm3 (0.0-0.1) 06/02/19 06:02 Add Manual Diff Complete 06/01/19 18:22 Total Counted 100 06/01/19 18:22 Seg Neutrophils % 73.0 % (40.0-70.0) H 06/02/19 06:02 Seg Neuts % (Manual) 68.0 % (40.0-70.0) 06/01/19 18:22 Band Neutrophils % 0 % 06/01/19 18:22 Lymphocytes % (Manual) 18.0 % (13.4-35.0) 06/01/19 18:22 Reactive Lymphs % (Man) 0 % 06/01/19 18:22 Monocytes % (Manual) 13.0 % (0.0-7.3) H 06/01/19 18:22 Eosinophils % (Manual) 1.0 % (0.0-4.3) 06/01/19 18:22 Basophils % (Manual) 0 % (0.0-1.8) 06/01/19 18:22 Metamyelocytes % 0 % 06/01/19 18:22 Myelocytes % 0 % 06/01/19 18:22 Promyelocytes % 0 % 06/01/19 18:22 Blast Cells % 0 % 06/01/19 18:22 Nucleated RBC % Not Reportable 06/01/19 18:22 Seg Neutrophils # 4.3 K/mm3 (1.8-7.7) 06/02/19 06:02 Seg Neutrophils # Man 3.5 K/mm3 (1.8-7.7) 06/01/19 18:22 Band Neutrophils # 0.0 K/mm3 06/01/19 18:22 Lymphocytes # (Manual) 0.9 K/mm3 (1.2-5.4) L 06/01/19 18:22 Abs React Lymphs (Man) 0.0 K/mm3 06/01/19 18:22 Monocytes # (Manual) 0.7 K/mm3 (0.0-0.8) 06/01/19 18:22 Eosinophils # (Manual) 0.1 K/mm3 (0.0-0.4) 06/01/19 18:22 Basophils # (Manual) 0.0 K/mm3 (0.0-0.1) 06/01/19 18:22 Metamyelocytes # 0.0 K/mm3 06/01/19 18:22 Myelocytes # 0.0 K/mm3 06/01/19 18:22 Promyelocytes # 0.0 K/mm3 06/01/19 18:22 Blast Cells # 0.0 K/mm3 06/01/19 18:22 WBC Morphology Not Reportable 06/01/19 18:22 Hypersegmented Neuts Not Reportable 06/01/19 18:22 Hyposegmented Neuts Not Reportable 06/01/19 18:22 Hypogranular Neuts Not Reportable 06/01/19 18:22 Smudge Cells Not Reportable 06/01/19 18:22 Toxic Granulation Not Reportable 06/01/19 18:22 Toxic Vacuolation Not Reportable 06/01/19 18:22 Dohle Bodies Not Reportable 06/01/19 18:22 Pelger-Huet Anomaly Not Reportable 06/01/19 18:22 Zoila Rods Not Reportable 06/01/19 18:22 Platelet Estimate Not Reportable 06/01/19 18:22 Clumped Platelets Not Reportable 06/01/19 18:22 Plt Clumps, EDTA Not Reportable 06/01/19 18:22 Large Platelets Not Reportable 06/01/19 18:22 Giant Platelets Not Reportable 06/01/19 18:22 Platelet Satelliting Not Reportable 06/01/19 18:22 Plt Morphology Comment Not Reportable 06/01/19 18:22 RBC Morphology Normal 06/01/19 18:22 Dimorphic RBCs Not Reportable 06/01/19 18:22 Polychromasia Not Reportable 06/01/19 18:22 Hypochromasia Not Reportable 06/01/19 18:22 Poikilocytosis Not Reportable 06/01/19 18:22 Anisocytosis Not Reportable 06/01/19 18:22 Microcytosis Not Reportable 06/01/19 18:22 Macrocytosis Not Reportable 06/01/19 18:22 Spherocytes Not Reportable 06/01/19 18:22 Pappenheimer Bodies Not Reportable 06/01/19 18:22 Sickle Cells Not Reportable 06/01/19 18:22 Target Cells Not Reportable 06/01/19 18:22 Tear Drop Cells Not Reportable 06/01/19 18:22 Ovalocytes Not Reportable 06/01/19 18:22 Helmet Cells Not Reportable 06/01/19 18:22 [place] Bodies Not Reportable 06/01/19 18:22 [place] Rings Not Reportable 06/01/19 18:22 [place] Cells Not Reportable 06/01/19 18:22 Bite Cells Not Reportable 06/01/19 18:22 Crenated Cell Not Reportable 06/01/19 18:22 Elliptocytes Not Reportable 06/01/19 18:22 Acanthocytes (Spur) Not Reportable 06/01/19 18:22 Rouleaux Not Reportable 06/01/19 18:22 Hemoglobin C Crystals Not Reportable 06/01/19 18:22 Schistocytes Not Reportable 06/01/19 18:22 Malaria parasites Not Reportable 06/01/19 18:22 [place] Bodies Not Reportable 06/01/19 18:22 Hem Pathologist Commnt No 06/01/19 18:22 Sodium 139 mmol/L (137-145) 06/02/19 06:02 Potassium 4.6 mmol/L (3.6-5.0) 06/02/19 06:02 Chloride 101.8 mmol/L (98-107) 06/02/19 06:02 Carbon Dioxide 26 mmol/L (22-30) 06/02/19 06:02 Anion Gap 16 mmol/L 06/02/19 06:02 BUN 19 mg/dL (7-17) H 06/02/19 06:02 Creatinine 0.8 mg/dL (0.7-1.2) 06/02/19 06:02 Estimated GFR > 60 ml/min 06/02/19 06:02 BUN/Creatinine Ratio 24 % 06/02/19 06:02 Glucose 115 mg/dL (65-100) H 06/02/19 06:02 Calcium 9.2 mg/dL (8.4-10.2) 06/02/19 06:02 Total Bilirubin 0.60 mg/dL (0.1-1.2) 06/01/19 18:22 Direct Bilirubin < 0.2 mg/dL (0-0.2) 06/01/19 18:22 Indirect Bilirubin 0.4 mg/dL 06/01/19 18:22 AST 33 units/L (5-40) 06/01/19 18:22 ALT 19 units/L (7-56) 06/01/19 18:22 Alkaline Phosphatase 86 units/L (35-129) 06/01/19 18:22 Total Protein 7.5 g/dL (6.3-8.2) 06/01/19 18:22 Albumin 3.6 g/dL (3.9-5) L 06/01/19 18:22 Albumin/Globulin Ratio 0.9 % 06/01/19 18:22 Lipase 56 units/L (13-60) 06/01/19 18:22 Urine Color Yellow (Yellow) 06/01/19 20:26 Urine Turbidity Clear (Clear) 06/01/19 20:26 Urine pH 6.0 (5.0-7.0) 06/01/19 20:26 Ur Specific [place] 1.043 (1.003-1.030) H 06/01/19 20:26 Urine Protein <15 mg/dl mg/dL (Negative) 06/01/19 20:26 Urine Glucose (UA) Neg mg/dL (Negative) 06/01/19 20:26 Urine Ketones Neg mg/dL (Negative) 06/01/19 20:26 Urine Blood Neg (Negative) 06/01/19 20:26 Urine Nitrite Neg (Negative) 06/01/19 20:26 Urine Bilirubin Neg (Negative) 06/01/19 20:26 Urine Urobilinogen < 2.0 mg/dL (<2.0) 06/01/19 20:26 Ur Leukocyte Esterase Neg (Negative) 06/01/19 20:26 Urine WBC (Auto) 1.0 /HPF (0.0-6.0) 06/01/19 20:26 Urine RBC (Auto) 1.0 /HPF (0.0-6.0) 06/01/19 20:26 U Epithel Cells (Auto) < 1.0 /HPF (0-13.0) 06/01/19 20:26 Urine Mucus Few /HPF 06/01/19 20:26 Active Medications - Current Medications Current Medications: Generic Name Dose Route Start Last Admin Trade Name Freq PRN Reason Stop Dose Admin Acetaminophen 650 mg 06/01/19 21:38 Tylenol PO Q4H PRN Pain MILD(1-3)/Fever >100.5/ALAN Albuterol 2.5 mg 06/01/19 22:42 Proventil IH Q4HRT PRN Shortness Of Breath Sodium Chloride 1,000 mls @ 75 mls/hr 06/01/19 21:45 06/02/19 17:54 Nacl 0.9% 1000 Ml IV 75 mls/hr DIRECT DOLLY Administration Amiodarone HCl 900 mg/ 500 mls @ 33.333 mls/hr 06/02/19 12:00 06/03/19 04:57 Dextrose IV 0.5 mg/min DIRECT DOLLY 16.667 mls/hr Administration Protocol 1 MG/MIN Morphine Sulfate 2 mg 06/01/19 21:43 06/03/19 13:10 Morphine IV 2 mg Q4H PRN Administration Pain, Moderate (4-6) Ondansetron HCl 4 mg 06/01/19 21:38 Zofran IV Q6H PRN Nausea And Vomiting Sodium Chloride 10 ml 06/01/19 22:00 06/02/19 21:27 Sodium Chloride Flush Syringe 10 Ml IV Not Given BID DOLLY Sodium Chloride 10 ml 06/01/19 21:38 Sodium Chloride Flush Syringe 10 Ml IV PRN PRN LINE FLUSH
--- NOTE | 2019-06-03 15:08 | Cat Scan Report ---
CT CHEST WITH CONTRAST INDICATION / CLINICAL INFORMATION: Metastatic lesions in lung.. TECHNIQUE: Axial CT images were obtained through the chest after 100 cc IV contrast. Sagittal and coronal reform atted images. All CT scans at this location are performed using CT dose reduction for ALARA by means of automated exposure control. COMPARISON: None available. FINDINGS: HEART: Moderate cardiomegaly. No pericardial effusion. THORACIC AORTA: No significant abnormality. MEDIASTINUM and STEPHEN: A right hilar mass or lymph node measures 2.6 cm. A left hilar mass or lymph no de measures 3.4 cm. LUNGS: Too many to count bilateral pulmonary nodules and masses are identified. The largest mass is l ocated in the anteromedial right upper lobe measuring 3.9 x 4.2 cm and demonstrates invasion into the anterior mediastinum. No underlying parenchymal lung disease is appreciated. PLEURA: Trace right pleural effusion layers posteriorly. Pleural-based mass in the posterior right ally ng measures 3.1 x 2.3 cm. No pneumothorax. SKELETAL SYSTEM: No suspicious bony lesions are identified. Mild thoracic spondylosis. UPPER ABDOMEN: No significant abnormality. ADDITIONAL FINDINGS: None. IMPRESSION: Numerous bilateral pulmonary masses and probable hilar adenopathy consistent with a metastatic proces s. Trace right pleural effusion. Moderate cardiomegaly. Signer Name: Germán Chatterjee Jr, MD Signed: 06/03/2019 3:04 PM Workstation Name: [id number]
--- NOTE | 2019-06-03 16:19 | Event Note ---
Date: 06/03/[address] of the abdomen and pelvis and CT of the chest. There is a focal mass in the base of the mesentery adjacent to the IVC and a shakir. Although this could be biopsied, I recommend against it as there are extremely vascular structures adjacent to it, this would not properly stage the patient, and there are easier structures to biopsy. There are multifocal lung lesions (clearly metastatic), with some large right- sided lung lesions that are quite accessible due to the peripheral location. Biopsy of these lesions would stage the lesion, and are much less risky. Recommend coordination with diagnostic radiology to coordinate a CT-guided right chest/lung biopsy.
[2019-06-03] MEDS: AMIODARONE 200 MG TAB PO SCH ×2 (19:33→23:56)
[2019-06-03] MEDS: PIPERACIL/TAZOBACTA 4.5/NS 100 4.5 GM/100 ML VIAL IV SCH ×2 (19:33→23:57)
--- NOTE | 2019-06-04 03:14 | Consultation ---
REFERRING PHYSICIAN: Dr. Reaves. REASON FOR CONSULTATION: History of unknown cancer stage 4, diagnosed in 2011. The patient speaks Jamaican and granddaughter was in the room. Then, I spoke to a family member who is in [place]. As per the information, the patient was diagnosed with lung lesions and had right nephrectomy and as per the patient's family member, she was diagnosed with stage 4 of questionable kidney cancer or other cancer. They have not been following with medical oncologist for some time. She came to the hospital because of abdominal pain. No vomiting, no diarrhea, no hematemesis, no hematochezia. No chest pain, no shortness of breath at rest. No bleeding issues. PAST MEDICAL HISTORY: As above. Question of lung cancer, question of liver cancer, question of kidney cancer. Details not clear. This was diagnosed somewhere in 2012. The patient has had right nephrectomy, history of hypertension, history of partial hepatic resection and umbilicus removed. SOCIAL HISTORY: Lives with family members. FAMILY HISTORY: Not contributory. ALLERGIES: PORK DERIVED PRODUCTS. PHYSICAL EXAMINATION: VITAL SIGNS: Temperature 99, pulse 60, respirations 18, BP 132/65. HEENT: No pallor, no icterus. NECK: No neck lymph nodes. HEART: S1, S2. LUNGS: Clear to auscultation. ABDOMEN: Obese. EXTREMITIES: No calf tenderness. LABORATORY DATA: White cell 5, hemoglobin 15, MCV 100, platelet 183, potassium 4.6, creatinine 0.8, calcium 9.2, bilirubin 0.6. RADIOLOGY: CT chest, abdomen and pelvis was done. This shows right nephrectomy, multiple lung nodules, largest is right upper lobe 4.2 cm, demonstrating vision into the anterior mediastinum. CT abdomen shows right nephrectomy. There is a mass in the root of mesentery with necrosis, 3.8 cm. ASSESSMENT: 1. Right nephrectomy. 2. Intraabdominal mass, 3.8 cm, in the root of mesentery. 3. Multiple lung nodules, largest being more than 4 cm. Radiologically, this is metastatic disease; however, the patient does not know the primary. Family members said procedure was done at [facility]; however, old records do not have that. We will try to get more information. The patient had right nephrectomy, mention of partial hepatic resection. She would need biopsy or at least old reports. 4. MCV elevated. 5. History of hypertension. 6. History of abdominal pain. PLAN: I will follow the patient during inpatient stay and then in the clinic setting. Her original cancer was somewhere in 2011, 2012. As per the information, the patient had refused chemotherapy and has been doing homeopathic medicines at home. JOB# [id number] NM/NTS
[2019-06-04] MEDS: ACETAMINOPHEN 325 MG TAB PO PRN ×4 (04:09→23:31)
[2019-06-04 05:32] LABS: Hematocrit 43.9 % (30.3-42.9); Hemoglobin 14.5 gm/dl (10.1-14.3); Mean Corpuscular HGB Conc 33 % (30-34); Mean Corpuscular Volume 100 fl (79-97); Platelet Count 143 K/mm3 (140-440); Red Blood Count 4.39 M/mm3 (3.65-5.03); Red Cell Distribution Width 13.8 % (13.2-15.2)
[2019-06-04 05:50] LABS: BUN/Creatinine Ratio 14; Blood Urea Nitrogen 10 mg/dL (7-17); Calcium 8.5 mg/dL (8.4-10.2); Hemolysis Index 3
--- NOTE | 2019-06-04 08:06 | Hem/Onc Progress Note ---
Assessment and Plan 1. Right nephrectomy. 2. Intraabdominal mass, 3.8 cm, in the root of mesentery. 3. Multiple lung nodules, largest being more than 4 cm. Radiologically, this is metastatic disease; however, the patient does not know the primary. Family members said procedure was done at [facility]; however, old records do not have that. The patient had right nephrectomy, mention of partial hepatic resection. She would need biopsy or at least old reports. 4. MCV elevated. 5. History of hypertension. 6. History of abdominal pain. PLAN: I will follow the patient during inpatient stay and then in the clinic setting. Her original cancer was somewhere in 2011, 2012. As per the information, the patient had refused chemotherapy and has been doing homeopathic medicines at home. d/w pt and daughter on 06/04 I had ordered lung bx pt does not want bx she wants homeopathic treatment family has recent radiology - they will get same to us - Patient Problems (1) Lesion of lung Current Visit: Yes Status: Acute Subjective Date of service: 06/04/19 Principal diagnosis: lung lesions Interval history: no abdo pain Objective - Exam Narrative Exam: Pain - none now - obese General appearance - alert Performance status limited self care Eyes - no icterus ENT - no bleeding LNs cervical not palpable Neck - no LN Respiratory Normal - on o2 Breath sounds - CTA anteriorly CVS S1 S2 + Extremities no edema General GI Soft Rectal deferred female - deferred Skin warm Musculoskeletal - moving limbs Neurologically alert awake - Constitutional Vitals: Last Vital Signs Temp 100.8 F H 06/04/19 03:57 Pulse 90 06/04/19 03:57 Resp 20 06/04/19 04:09 BP 136/56 06/04/19 03:57 Pulse Ox 95 06/04/19 07:53 - Labs Lab Results: Laboratory Results - last 24 hr 06/03/19 06/03/19 06/03/19 14:43 15:58 15:58 WBC RBC Hgb Hct MCV MCH MCHC RDW Plt Count POC ABG pH 7.313 L POC ABG pCO2 54.2 H POC ABG HCO3 27.5 POC ABG Total CO2 29 POC ABG O2 Sat 76 POC ABG Base Excess 1 FiO2 21 Sodium Potassium Chloride Carbon Dioxide Anion Gap BUN Creatinine Estimated GFR BUN/Creatinine Ratio Glucose Calcium TSH 1.420 Free T4 1.39 06/04/19 06/04/19 04:35 04:35 WBC 5.7 RBC 4.39 Hgb 14.5 H Hct 43.9 H MCV 100 H MCH 33 H MCHC 33 RDW 13.8 Plt Count 143 POC ABG pH POC ABG pCO2 POC ABG HCO3 POC ABG Total CO2 POC ABG O2 Sat POC ABG Base Excess FiO2 Sodium 135 L Potassium 4.2 Chloride 97.7 L Carbon Dioxide 23 Anion Gap 19 BUN 10 Creatinine 0.7 Estimated GFR > 60 BUN/Creatinine Ratio 14 Glucose 129 H Calcium 8.5 TSH Free T4 Medications & Allergies - Medications Allergies/Adverse Reactions: Allergies pork derived (porcine) Adverse Reaction (Verified 06/01/19 17:23) Hives Home Medications: Home Medications Medication Instructions Recorded Confirmed Last Taken Type Unobtainable 06/01/19 06/01/19 Unknown History Active Medications: Generic Name Dose Route Start Last Admin Trade Name Freq PRN Reason Stop Dose Admin Acetaminophen 650 mg 06/01/19 21:38 06/04/19 04:09 Tylenol PO 650 mg Q4H PRN Administration Pain MILD(1-3)/Fever >100.5/ALAN Albuterol 2.5 mg 06/01/19 22:42 Proventil IH Q4HRT PRN Shortness Of Breath Amiodarone HCl 200 mg 06/03/19 15:00 06/03/19 23:56 Cordarone PO 200 mg BID DOLLY Administration Sodium Chloride 1,000 mls @ 75 mls/hr 06/01/19 21:45 06/02/19 17:54 Nacl 0.9% 1000 Ml IV 75 mls/hr DIRECT DOLLY Administration Piperacillin Sod/Tazobactam Sod 4.5 gm in 100 mls @ 200 mls/hr 06/03/19 16:00 06/03/19 23:57 Zosyn/Ns 4.5gm/100ml IV 200 mls/hr Q8H DOLLY Administration Protocol Morphine Sulfate 2 mg 06/01/19 21:43 06/03/19 13:10 Morphine IV 2 mg Q4H PRN Administration Pain, Moderate (4-6) Ondansetron HCl 4 mg 06/01/19 21:38 Zofran IV Q6H PRN Nausea And Vomiting Sodium Chloride 10 ml 06/01/19 22:00 06/03/19 21:32 Sodium Chloride Flush Syringe 10 Ml IV 10 ml BID DOLLY Administration Sodium Chloride 10 ml 06/01/19 21:38 Sodium Chloride Flush Syringe 10 Ml IV PRN PRN LINE FLUSH
--- NOTE | 2019-06-04 08:50 | Progress Note ---
Assessment and Plan diffuse metastatic disease consult dictated Subjective Date of service: 06/04/19 Principal diagnosis: lung lesions Objective - Constitutional Vitals: Vital Signs - 12hr 06/03/19 06/03/19 06/04/19 22:57 23:00 03:57 Temperature 99.3 F 100.8 F H Pulse Rate 80 90 Respiratory 18 19 Rate Blood Pressure 109/51 136/56 O2 Sat by Pulse 89 93 90 Oximetry 06/04/19 06/04/19 04:09 07:53 Temperature Pulse Rate Respiratory 20 Rate Blood Pressure O2 Sat by Pulse 95 Oximetry General appearance: Present: no acute distress - Respiratory Respiratory effort: normal - Labs CBC & Chem 7: 06/04/19 04:35 06/04/19 04:35 Labs: Abnormal lab results 06/03/19 06/04/19 06/04/19 Range/Units 14:43 04:35 04:35 Hgb 14.5 H (10.1-14.3) gm/dl Hct 43.9 H (30.3-42.9) % MCV 100 H (79-97) fl MCH 33 H (28-32) pg POC ABG pH 7.313 L (7.35-7.45) POC ABG pCO2 54.2 H (35-45) Sodium 135 L (137-145) mmol/L Chloride 97.7 L (98-107) mmol/L Glucose 129 H (65-100) mg/dL Medications & Allergies - Medications Allergies/Adverse Reactions: Allergies pork derived (porcine) Adverse Reaction (Verified 06/01/19 17:23) Hives Home Medications: Home Medications Medication Instructions Recorded Confirmed Last Taken Type Unobtainable 06/01/19 06/01/19 Unknown History Active Medications: Generic Name Dose Route Start Last Admin Trade Name Freq PRN Reason Stop Dose Admin Acetaminophen 650 mg 06/01/19 21:38 06/04/19 04:09 Tylenol PO 650 mg Q4H PRN Administration Pain MILD(1-3)/Fever >100.5/ALAN Albuterol 2.5 mg 06/01/19 22:42 Proventil IH Q4HRT PRN Shortness Of Breath Amiodarone HCl 200 mg 06/03/19 15:00 06/03/19 23:56 Cordarone PO 200 mg BID DOLLY Administration Sodium Chloride 1,000 mls @ 75 mls/hr 06/01/19 21:45 06/02/19 17:54 Nacl 0.9% 1000 Ml IV 75 mls/hr DIRECT DOLLY Administration Piperacillin Sod/Tazobactam Sod 4.5 gm in 100 mls @ 200 mls/hr 06/03/19 16:00 06/03/19 23:57 Zosyn/Ns 4.5gm/100ml IV 200 mls/hr Q8H DOLLY Administration Protocol Morphine Sulfate 2 mg 06/01/19 21:43 06/03/19 13:10 Morphine IV 2 mg Q4H PRN Administration Pain, Moderate (4-6) Ondansetron HCl 4 mg 06/01/19 21:38 Zofran IV Q6H PRN Nausea And Vomiting Sodium Chloride 10 ml 06/01/19 22:00 06/03/19 21:32 Sodium Chloride Flush Syringe 10 Ml IV 10 ml BID DOLLY Administration Sodium Chloride 10 ml 06/01/19 21:38 Sodium Chloride Flush Syringe 10 Ml IV PRN PRN LINE FLUSH
--- NOTE | 2019-06-04 08:55 | Consultation ---
HISTORY OF PRESENT ILLNESS: The patient is a 78-year-old woman who presented with flank pain and weakness. She has a history of cancer and I had seen her about 8 years ago. She was lost to follow up and did not followup. She presented with pain. She has diffuse metastatic disease in the chest and abdomen. PAST MEDICAL HISTORY: Lung cancer, kidney cancer. PAST SURGICAL HISTORY: Partial liver resection and nephrectomy. SOCIAL HISTORY: Noncontributory. FAMILY HISTORY: Noncontributory. ALLERGIES: No known drugs. REVIEW OF SYSTEMS: Right flank discomfort. PHYSICAL EXAMINATION: GENERAL: She is obese, awake, in no distress. She is complaining of a mild dull ache in the right side. ABDOMEN: Soft, nondistended, no localized tenderness. IMPRESSION: Metastatic disease, history of lung and kidney cancer, who was lost to follow up in 7-8 years ago, post right nephrectomy. Recommend oncological treatment pending biopsies and pathological diagnosis. JOB# [id number] GILBERT/JESSICA
[2019-06-04] MEDS: PIPERACIL/TAZOBACTA 4.5/NS 100 4.5 GM/100 ML VIAL IV SCH ×3 (09:44→23:33)
[2019-06-04] MEDS: SODIUM CHLORIDE 0.9% 1000 ML 1,000 ML IV SCH (09:44)
--- NOTE | 2019-06-04 10:38 | Progress Note ---
Assessment and Plan Echo reviewed - EF 55-60%, LA mod dilated, RA mildly dilated, mild MR, mild TR, RVSP 44mmHg. Thyroid profile WNL. Pt remains in NSR. Cont PO amio. Cont to observe on telemetry. No systemic AC at this time due to brief duration of single episode of AFib noted. Additionally, senior care systemic AC may be difficult to maintain in setting of metastatic cancer. Pt for possible CT-guided right chest/lung biopsy. The patient has been seen in conjunction with Dr. Ornelas who agrees with the assessment and plan of care. - Patient Problems (1) Atrial fibrillation with RVR Current Visit: Yes Status: Acute (2) Abdominal pain Current Visit: Yes Status: Acute Qualifiers: Abdominal location: lower abdomen, unspecified Qualified Code(s): R10.30 - Lower abdominal pain, unspecified (3) Hypertension Current Visit: Yes Status: Chronic (4) Mesenteric mass Current Visit: Yes Status: Acute (5) Metastatic disease Current Visit: Yes Status: Chronic Subjective Date of service: 06/04/19 Principal diagnosis: lung lesions Interval history: pt resting in bed, no current complaints. tele reviewed - in SR. Objective Last Vital Signs Temp 97.4 F L 06/04/19 08:00 Pulse 68 06/04/19 08:00 Resp 20 06/04/19 08:00 BP 124/52 06/04/19 08:00 Pulse Ox 93 06/04/19 08:00 - Physical Examination General: No Apparent Distress HEENT: Positive: PERRL Neck: Positive: neck supple Cardiac: Positive: Reg Rate and Rhythm, S1/S2 Lungs: Positive: Decreased Breath Sounds Neuro: Positive: Grossly Intact Abdomen: Positive: Tender Skin: Positive: Clear Musculoskeletal: Decreased Range of Motion Extremities: Present: normal - Labs and Meds CBC 06/04/19 Range/Units 04:35 WBC 5.7 (4.5-11.0) K/mm3 RBC 4.39 (3.65-5.03) M/mm3 Hgb 14.5 H (10.1-14.3) gm/dl Hct 43.9 H (30.3-42.9) % Plt Count 143 (140-440) K/mm3 Comprehensive Metabolic Panel 06/04/19 Range/Units 04:35 Sodium 135 L (137-145) mmol/L Potassium 4.2 (3.6-5.0) mmol/L Chloride 97.7 L (98-107) mmol/L Carbon Dioxide 23 (22-30) mmol/L BUN 10 (7-17) mg/dL Creatinine 0.7 (0.7-1.2) mg/dL Glucose 129 H (65-100) mg/dL Calcium 8.5 (8.4-10.2) mg/dL - Imaging and Cardiology Echo: pending
[2019-06-04] MEDS: AMIODARONE 200 MG TAB PO SCH ×2 (12:05→21:58)
--- NOTE | 2019-06-04 13:50 | Progress Note ---
Assessment and Plan Patient alert and awake. Resting on room air at this time. O2 saturation is 92%. Patient has CT scan of the chest, showed numerous bilateral pulmonary masses and probable hilar adenopathy consistent with a metastatic process. Trace right p leural effusion. Moderate cardiomegaly. However, patient refusing biopsy of these lesions. - Patient Problems (1) Mesenteric mass Current Visit: Yes Status: Acute Plan to address problem: Patient refusing to have biopsy of the lung lesions (2) Abdominal pain Current Visit: Yes Status: Acute Qualifiers: Abdominal location: lower abdomen, unspecified Qualified Code(s): R10.30 - Lower abdominal pain, unspecified Plan to address problem: Consult General surgery. (3) Atrial fibrillation with RVR Current Visit: Yes Status: Acute Plan to address problem: Patient is on Amiodorone. Management as per cardiology. (4) Hypertension Current Visit: Yes Status: Chronic Plan to address problem: Management as per primary care. (5) Metastatic disease Current Visit: Yes Status: Chronic Plan to address problem: CT scan of the chest showed bilateral multiple nodules. However patient refusing to have biopsy of these nodules Subjective Date of service: 06/04/19 Principal diagnosis: lung lesions Interval history: Patient alert and awake. Resting on room air at this time. O2 saturation is 92%. Patient has CT scan of the chest, showed numerous bilateral pulmonary masses and probable hilar adenopathy consistent with a metastatic process. Trace right pleural effusion. Moderate cardiomegaly. However, patient refusing biopsy of these lesions. Objective Vital Signs - 12hr 06/04/19 06/04/19 06/04/19 03:57 04:09 07:53 Temperature 100.8 F H Pulse Rate 90 Respiratory 19 20 Rate Blood Pressure 136/56 Blood Pressure [Left] O2 Sat by Pulse 90 95 Oximetry 06/04/19 06/04/19 06/04/19 08:00 10:00 13:39 Temperature 97.4 F L Pulse Rate 68 101 H Respiratory 20 18 Rate Blood Pressure Blood Pressure 124/52 [Left] O2 Sat by Pulse 93 Oximetry Constitutional: no acute distress, alert, other (Morbidly Obese.) Eyes: non-icteric ENT: oropharynx moist Neck: supple, no JVD Ascultation: Bilateral: diminished breath sounds Cardiovascular: irregular rhythm Gastrointestinal: hypoactive bowel sounds, tender Extremities: no cyanosis, no edema Neurologic: normal mental status, non-focal exam, pupils equal and round, CN II- XII normal Psychiatric: depressed CBC and BMP: 06/04/19 04:35 06/04/19 04:35 ABG, PT/INR, D-dimer: ABG POC ABG pH 7.313 (7.35-7.45) L 06/03/19 14:43 POC ABG pCO2 54.2 (35-45) H 06/03/19 14:43 POC ABG pO2 < 50 (80-105) L 06/03/19 14:43 POC ABG HCO3 27.5 (22-26 mml/L) 06/03/19 14:43 POC ABG Total CO2 29 (23-27mmol/L) 06/03/19 14:43 POC ABG O2 Sat 76 06/03/19 14:43 Abnormal lab findings: Abnormal Labs 06/01/19 06/01/19 06/01/19 18:22 18:22 20:26 Hgb 15.6 H Hct 46.8 H MCV 99 H MCH 33 H Lymph % (Auto) [place] % (Auto) Lymph # [place] # Seg Neutrophils % Monocytes % (Manual) 13.0 H Lymphocytes # (Manual) 0.9 L POC ABG pH POC ABG pCO2 POC ABG pO2 Sodium 133 L Chloride 95.4 L Carbon Dioxide 21 L BUN 24 H Glucose 137 H Albumin 3.6 L Ur Specific [place] 1.043 H 06/02/19 06/02/19 06/03/19 06:02 06:02 14:43 Hgb 15.5 H Hct 46.9 H MCV 100 H MCH 33 H Lymph % (Auto) 10.7 L [place] % (Auto) 15.2 H Lymph # 0.6 L [place] # 0.9 H Seg Neutrophils % 73.0 H Monocytes % (Manual) Lymphocytes # (Manual) POC ABG pH 7.313 L POC ABG pCO2 54.2 H POC ABG pO2 < 50 L Sodium Chloride Carbon Dioxide BUN 19 H Glucose 115 H Albumin Ur Specific [place] 06/04/19 06/04/19 04:35 04:35 Hgb 14.5 H Hct 43.9 H MCV 100 H MCH 33 H Lymph % (Auto) [place] % (Auto) Lymph # [place] # Seg Neutrophils % Monocytes % (Manual) Lymphocytes # (Manual) POC ABG pH POC ABG pCO2 POC ABG pO2 Sodium 135 L Chloride 97.7 L Carbon Dioxide BUN Glucose 129 H Albumin Ur Specific [place] CT scan - chest: report reviewed, image reviewed Additional Studies: CT scan of the chest on 06/03/2019 showed numerous bilateral pulmonary masses and probable hilar adenopathy consistent with a metastatic process. Trace right pleural effusion. Moderate cardiomegaly.
--- NOTE | 2019-06-04 16:21 | Progress Note ---
Assessment and Plan /Acute abdominal pain with Mesenteric mass -CT Abdomen/Pelvis shows: Necrotic mass in the root of the mesentery anterior to the aorta and IVC, also likely metastatic lesion/adenopathy -Hx of lung and renal cancer with mets to liver, s/p nephrectomy and partial liver (approx 6 yrs ago) - Received IV Zosyn in ED -Continue supportive care -GI / General Surgery/Heme/Onc/urology Consulted -consulted IR to evaluate for biospy - no surgical need and difficult for biopsy per vascular - family wants to proceed with hospice now /Bilateral Pulmonary Nodules (Innumerable) - R>L pulmonary nodules and masses in the visualized lower lungs suggesting metastatic disease -Hx of Lung cancer with mets to liver -Denies hx of chemo therapy or radiation /Acute Hypoxic Respiratory Failure -No Baseline home oxygen requirements -Saturations in mid 80's on RA -Currently on supplemental -Monitor saturations -Continue supplemental oxygen wean as tolerated /AFib with RVR, proven by EKG: consulted and notified Dr. Alcala. transitioned Amiodarone drip to po - per cardiology: No systemic AC at this time due to brief duration of single episode of AFib noted. Additionally, longterm systemic AC may be difficult to maintain in setting of metastatic cancer /[id number] on admission 133-Slowly correct Na with IVF-Continue to monitor replete prn /Hx HTN-Currnently noromotensive-Denies use of antihypertensive meds-Monitor BP DVT PPX-Hold off on systemic anticoagulation d/t metastatic disease-SCD's Disposition: continue inpatient care till hospice setup Brief History Patient is a 71-year-old speaking female with history of hypertension, HLD and h/o lung and renal cancer with mets dx 2012 s/p nephrectomy and refused chemotherapy at the time of Dx who presents to [facility] ED with complaints of abdominal pain for the past 2 weeks. * CT Abdomen/Pelvis IMPRESSION: 1. Innumerable bilateral, right greater than lef t, pulmonary nodules and masses in the visualized lower lungs suggesting metastatic disease. 2. Necrotic mass in the root of the mesentery anterior to the aorta and IVC, also likely metastatic lesion/adenopathy. Hospitalist Physical Gen: WDWN, NAD, Awake, Alert, Orientated HEENT: NCAT, EOMI, PERRL, OP Clear Neck: supple, no adenopathy, no thyromegaly, no JVD CVS/Heart: + S1S2, pulses present bilaterally Chest/Lungs: diminished bs bilaterally Symmetrical chest expansion, good air entry bilaterally GI/Abdomen: soft, + tenderness right to suprapubic area, good bowel sounds, no guarding or rebound Extermity/Skin: no c/c/e, no obvious rash MSK: FROM x 4 Neuro: CN 2-12 grossly intact, no new focal deficits Psych: calm Subjective Date of service: 06/04/19 Principal diagnosis: lung lesions Interval history: patient seen and examined discussed with daughter by phone family wants hospice and pat/family does not want any treatment or biopsy for the tumor wants to f/u outpt and decided for home hospice Objective - Constitutional Vitals: Vital Signs - 12hr 06/04/19 06/04/19 06/04/19 07:53 08:00 10:00 Temperature 97.4 F L Pulse Rate 68 101 H Respiratory 20 Rate Blood Pressure 124/52 [Left] O2 Sat by Pulse 95 93 Oximetry 06/04/19 13:39 Temperature Pulse Rate Respiratory 18 Rate Blood Pressure [Left] O2 Sat by Pulse Oximetry - Labs CBC & Chem 7: 06/04/19 04:35 06/04/19 04:35 Labs: Abnormal lab results 06/03/19 06/04/19 06/04/19 Range/Units 14:43 04:35 04:35 Hgb 14.5 H (10.1-14.3) gm/dl Hct 43.9 H (30.3-42.9) % MCV 100 H (79-97) fl MCH 33 H (28-32) pg POC ABG pO2 < 50 L (80-105) Sodium 135 L (137-145) mmol/L Chloride 97.7 L (98-107) mmol/L Glucose 129 H (65-100) mg/dL
--- NOTE | 2019-06-05 08:18 | Hem/Onc Progress Note ---
Assessment and Plan 1. Right nephrectomy. 2. Intraabdominal mass, 3.8 cm, in the root of mesentery. 3. Multiple lung nodules, largest being more than 4 cm. Radiologically, this is metastatic disease; however, the patient does not know the primary. Family members said procedure was done at [facility]; however, old records do not have that. The patient had right nephrectomy, mention of partial hepatic resection. She would need biopsy or at least old reports. 4. MCV elevated. 5. History of hypertension. 6. History of abdominal pain. PLAN: I will follow the patient during inpatient stay and then in the clinic setting. Her original cancer was somewhere in 2011, 2012. As per the information, the patient had refused chemotherapy and has been doing homeopathic medicines at home. d/w pt and daughter on 06/04 I had ordered lung bx pt does not want bx she wants homeopathic treatment family has recent radiology - they will get same to us d/w dr daniel - family wants hospice d/w family reg need for bx - OP follow up rash rt gluteal area - ? shingles - RN informed - d/w dr Daniel - Patient Problems (1) Lesion of lung Current Visit: Yes Status: Acute Subjective Date of service: 06/05/19 Principal diagnosis: lung lesions - ? mets Interval history: rash rt gluteal area Objective - Exam Narrative Exam: Pain - none now - obese General appearance - alert Performance status limited self care Eyes - no icterus ENT - no bleeding LNs cervical not palpable Neck - no LN Respiratory Normal - on o2 Breath sounds - CTA anteriorly CVS S1 S2 + Extremities no edema General GI Soft Rectal deferred female - deferred Skin RASH rt gluteal area Musculoskeletal - moving limbs Neurologically alert awake - Constitutional Vitals: Last Vital Signs Temp 98.1 F 06/05/19 07:46 Pulse 49 L 06/05/19 07:46 Resp 18 06/05/19 07:46 BP 157/72 06/05/19 07:46 Pulse Ox 96 06/05/19 08:09 - Labs Lab Results: Laboratory Results - last 24 hr 06/03/19 14:43 POC ABG pO2 < 50 L Medications & Allergies - Medications Allergies/Adverse Reactions: Allergies pork derived (porcine) Adverse Reaction (Verified 06/01/19 17:23) Hives Home Medications: Home Medications Medication Instructions Recorded Confirmed Last Taken Type Unobtainable 06/01/19 06/01/19 Unknown History Active Medications: Generic Name Dose Route Start Last Admin Trade Name Manuel PRN Reason Stop Dose Admin Acetaminophen 650 mg 06/01/19 21:38 06/04/19 23:31 Tylenol PO 650 mg Q4H PRN Administration Pain MILD(1-3)/Fever >100.5/ALAN Albuterol 2.5 mg 06/01/19 22:42 Proventil IH Q4HRT PRN Shortness Of Breath Amiodarone HCl 200 mg 06/03/19 15:00 06/04/19 21:58 Cordarone PO 200 mg BID DOLLY Administration Sodium Chloride 1,000 mls @ 75 mls/hr 06/01/19 21:45 06/04/19 09:44 Nacl 0.9% 1000 Ml IV 75 mls/hr DIRECT DOLLY Administration Piperacillin Sod/Tazobactam Sod 4.5 gm in 100 mls @ 200 mls/hr 06/03/19 16:00 06/04/19 23:33 Zosyn/Ns 4.5gm/100ml IV 200 mls/hr Q8H DOLLY Administration Protocol Morphine Sulfate 2 mg 06/01/19 21:43 06/03/19 13:10 Morphine IV 2 mg Q4H PRN Administration Pain, Moderate (4-6) Ondansetron HCl 4 mg 06/01/19 21:38 Zofran IV Q6H PRN Nausea And Vomiting Sodium Chloride 10 ml 06/01/19 22:00 06/04/19 22:13 Sodium Chloride Flush Syringe 10 Ml IV 10 ml BID DOLLY Administration Sodium Chloride 10 ml 06/01/19 21:38 Sodium Chloride Flush Syringe 10 Ml IV PRN PRN LINE FLUSH
[2019-06-05] MEDS: PIPERACIL/TAZOBACTA 4.5/NS 100 4.5 GM/100 ML VIAL IV SCH (09:12)
[2019-06-05] MEDS: AMIODARONE 200 MG TAB PO SCH (09:12)
--- NOTE | 2019-06-05 10:44 | Progress Note ---
Assessment and Plan Pt remains in NSR. BPs have been elevated - will d/c PO amio and initiate lopressor, titrate as tolerated. No systemic AC at this time due to brief duration of single episode of AFib noted. 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 Pt for possible CT-guided right chest/lung biopsy. Currently stable cardiac status. Nothing further to add from cardiac perspective at this time. Will sign off. The patient has been seen in conjunction with Dr. Ornelas who agrees with the assessment and plan of care. - Patient Problems (1) Atrial fibrillation with RVR Current Visit: Yes Status: Acute (2) Abdominal pain Current Visit: Yes Status: Acute Qualifiers: Abdominal location: lower abdomen, unspecified Qualified Code(s): R10.30 - Lower abdominal pain, unspecified (3) Hypertension Current Visit: Yes Status: Chronic (4) Mesenteric mass Current Visit: Yes Status: Acute (5) Metastatic disease Current Visit: Yes Status: Chronic Subjective Date of service: 06/05/19 Principal diagnosis: lung lesions - ? mets Interval history: pt resting in bed, no current complaints. tele reviewed - in SR. Objective Last Vital Signs Temp 98.1 F 06/05/19 07:46 Pulse 88 06/05/19 09:20 Resp 18 06/05/19 09:20 BP 157/72 06/05/19 07:46 Pulse Ox 98 06/05/19 09:20 - Physical Examination General: No Apparent Distress HEENT: Positive: PERRL Neck: Positive: neck supple Cardiac: Positive: Reg Rate and Rhythm, S1/S2 Lungs: Positive: Decreased Breath Sounds Neuro: Positive: Grossly Intact Abdomen: Positive: Tender Skin: Positive: Clear Musculoskeletal: Decreased Range of Motion Extremities: Present: normal - Imaging and Cardiology Echo: pending
--- NOTE | 2019-06-05 13:34 | Discharge Summary ---
Providers - Providers Date of Admission: 06/01/19 20:57 Date of discharge: 06/05/19 Attending physician: BIBIANA QIU 06/01/19 21:29 Consult to Physician [CONS] Routine Comment: JONATHAN Gallardo spoke with Dr. Espinal @ [id number] Consulting Provider: KENNETH ESPINAL Physician Instructions: Reason For Exam: Necrotic mass in the root of the mesentery 06/01/19 21:35 Consult to Physician [CONS] Routine Comment: called answ. serv/ aram Consulting Provider: ANAYA BRIONES Physician Instructions: Reason For Exam: hx lung ca with mets to liver s/p liver resection 06/01/19 21:36 Consult to Physician [CONS] Routine Comment: called answ. serv. / aram Consulting Provider: JOHN ESCALANTE Physician Instructions: Reason For Exam: hx lung ca with mets to liver 06/01/19 21:37 Consult to Physician [CONS] Routine Comment: called answ, serv/aram Consulting Provider: MARIA ALEJANDRA MARKS Physician Instructions: Reason For Exam: bilateral pulmonary nodules R>L, hx lung ca with 06/01/19 21:47 Consult to Case Management [CONS] Routine Services Needed at Discharge: Other Notified:: complex case manager Additional Physician Instructions: Spelled with set up for possible home palliative/hospice care 06/02/19 11:00 Consult to Physician [CONS] Routine Comment: Consulting Provider: SHANIA STEINBERG Physician Instructions: i spoke with Reason For Exam: afib rvr 06/03/19 14:30 Consult to Interventional Radiology [CONS] Routine Consulting Provider: MARCIANO DE LEON Reason For Exam: evaluate for mesenteric bx Place consult to:: Dr. Cedeno Notified:: - Comment:: Dr. Melendez aware of consult per note 06/03/19 @ 1619 06/05/19 02:58 Consult to Wound/ET Nurse [CONS] Routine Reason For Exam: wound eval Primary care physician: ANALISA ORTEGA Hospitalization Condition: Stable Hospital course: Patient is a 71-year-old speaking female with history of hypertension, HLD and h/o lung and renal cancer with mets dx 2012 s/p nephrectomy and refused chemotherapy at the time of Dx who presents to [facility] ED with complaints of abdominal pain for the past 2 weeks. * CT Abdomen/Pelvis IMPRESSION: 1. Innumerable bilateral, right greater than left, pulmonary nodules and masses in the visualized lower lungs suggesting metastatic disease. 2. Necrotic mass in the root of the mesentery anterior to the aorta and IVC, also likely metastatic lesion/adenopathy. 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, s/p nephrectomy and partial liver (approx 6 yrs ago) - Received IV Zosyn in ED -Continue supportive care -GI / General Surgery/Heme/Onc/urology Consulted -consulted IR to evaluate for biospy - no surgical need and difficult for biopsy per vascular - family wants to proceed with hospice now /Bilateral Pulmonary Nodules (Innumerable) - R>L pulmonary nodules and masses in the visualized lower lungs suggesting metastatic disease -Hx of Lung cancer with mets to liver -Denies hx of chemo therapy or radiation /Acute Hypoxic Respiratory Failure -No Baseline home oxygen requirements -Saturations in mid 80's on RA -Currently on supplemental -Monitor saturations -Continue supplemental oxygen wean as tolerated /AFib with RVR, proven by EKG: consulted and notified Dr. Steinberg. transitioned Amiodarone drip to po - per cardiology: No systemic AC at this time due to brief duration of single episode of AFib noted. 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 in setting of metastatic cancer /[id number] on admission 133-Slowly correct Na with IVF-Continue to monitor replete prn /Hx HTN-Currnently noromotensive-Denies use of antihypertensive meds-Monitor BP DVT PPX-Hold off on systemic anticoagulation d/t metastatic disease-SCD's Disposition: continue inpatient care till hospice setup Hospitalist Physical Gen: WDWN, NAD, Awake, Alert, Orientated HEENT: NCAT, EOMI, PERRL, OP Clear Neck: supple, no adenopathy, no thyromegaly, no JVD CVS/Heart: irregular irregular normal S1S2, pulses present bilaterally Chest/Lungs: diminished bs bilaterally Symmetrical chest expansion, good air entry bilaterally GI/Abdomen: soft, diffuse tenderness right to suprapubic area, good bowel so unds, no guarding or rebound Extermity/Skin: no c/c/e, no obvious rash MSK: FROM x 4 Neuro: CN 2-12 grossly intact, no new focal deficits Psych: calm Disposition: DC-50 TO HOSPICE (HOME) Time spent for discharge: 34 minutes Core Measure Documentation - Palliative Care Palliative Care/ Comfort Measures: Not Applicable - Core Measures Any of the following diagnoses?: none Exam - Constitutional Vitals: Temp Pulse Resp BP Pulse Ox 98.1 F 88 18 157/72 98 06/05/19 07:46 06/05/19 09:20 06/05/19 09:20 06/05/19 07:46 06/05/19 09:20 Plan Activity: fall precautions Weight Bearing Status: Non-Weight Bearing Diet: regular Follow up with: ANALISA ORTEGA III, MOOKIE-BC [Primary Care Provider] - 7 Days
--- NOTE | 2019-06-05 13:46 | Progress Note ---
Assessment and Plan s. - Patient Problems (1) Mesenteric mass Status: Acute (2) Abdominal pain Status: Acute (3) Atrial fibrillation with RVR Status: Acute (4) Hypertension Status: Chronic (5) Metastatic disease Status: Chronic Subjective Date of service: 06/05/19 Principal diagnosis: lung lesions Interval history: Pt left before I saw her. Objective Vital Signs - 12hr 06/05/19 06/05/19 06/05/19 03:40 07:35 07:46 Temperature 99.9 F H 98.1 F Pulse Rate 74 87 49 L Pulse Rate [ From Monitor] Respiratory 18 18 Rate Blood Pressure 136/56 157/72 O2 Sat by Pulse 92 86 Oximetry 06/05/19 06/05/19 08:09 09:20 Temperature Pulse Rate Pulse Rate [ 88 From Monitor] Respiratory 18 Rate Blood Pressure O2 Sat by Pulse 96 98 Oximetry Neck: supple CBC and BMP: 06/04/19 04:35 06/04/19 04:35 ABG, PT/INR, D-dimer: ABG POC ABG pH 7.313 (7.35-7.45) L 06/03/19 14:43 POC ABG pCO2 54.2 (35-45) H 06/03/19 14:43 POC ABG pO2 < 50 (80-105) L 06/03/19 14:43 POC ABG HCO3 27.5 (22-26 mml/L) 06/03/19 14:43 POC ABG Total CO2 29 (23-27mmol/L) 06/03/19 14:43 POC ABG O2 Sat 76 06/03/19 14:43 Abnormal lab findings: Abnormal Labs 06/01/19 06/01/19 06/01/19 18:22 18:22 20:26 Hgb 15.6 H Hct 46.8 H MCV 99 H MCH 33 H Lymph % (Auto) [place] % (Auto) Lymph # [place] # Seg Neutrophils % Monocytes % (Manual) 13.0 H Lymphocytes # (Manual) 0.9 L POC ABG pH POC ABG pCO2 POC ABG pO2 Sodium 133 L Chloride 95.4 L Carbon Dioxide 21 L BUN 24 H Glucose 137 H Albumin 3.6 L Ur Specific [place] 1.043 H 06/02/19 06/02/19 06/03/19 06:02 06:02 14:43 Hgb 15.5 H Hct 46.9 H MCV 100 H MCH 33 H Lymph % (Auto) 10.7 L [place] % (Auto) 15.2 H Lymph # 0.6 L [place] # 0.9 H Seg Neutrophils % 73.0 H Monocytes % (Manual) Lymphocytes # (Manual) POC ABG pH 7.313 L POC ABG pCO2 54.2 H POC ABG pO2 < 50 L Sodium Chloride Carbon Dioxide BUN 19 H Glucose 115 H Albumin Ur Specific [place] 06/04/19 06/04/19 04:35 04:35 Hgb 14.5 H Hct 43.9 H MCV 100 H MCH 33 H Lymph % (Auto) [place] % (Auto) Lymph # [place] # Seg Neutrophils % Monocytes % (Manual) Lymphocytes # (Manual) POC ABG pH POC ABG pCO2 POC ABG pO2 Sodium 135 L Chloride 97.7 L Carbon Dioxide BUN Glucose 129 H Albumin Ur Specific [place]
[2019-06-05] MEDS ORDERED: METOPROLOL TARTRATE 25 MG TAB PO SCH (14:00)
[2019-06-05 14:45] VITALS: BP 130/55
[2019-06-05] MEDS ORDERED: ACYCLOVIR 800 MG TAB PO SCH (18:00)
[2019-06-06] MEDS ORDERED: AMIODARONE 200 MG TAB PO SCH (10:00)
== END 2019-06-05 15:56 | disposition hospice, home (50) | DRG 393 ==
LOC: ED 17:19 → 2B-ACE 20:57 → 4A 06-02 12:52
PROVIDERS: ADMIT Internal Medicine; ATTEND Internal Medicine
PROC: 4A033R1 Measurement of Arterial Saturation, Peripheral, Percutaneous Approach (ICD-10-PCS; principal; 2019-06-03)
DX: K63.89 Other specified diseases of intestine (principal); J96.01 Acute respiratory failure with hypoxia; E87.1 Hypo-osmolality and hyponatremia; C34.90 Malignant neoplasm of unspecified part of unspecified bronchus or lung; C78.7 Secondary malignant neoplasm of liver and intrahepatic bile duct; I10 Essential (primary) hypertension; I48.91 Unspecified atrial fibrillation; Z90.5 Acquired absence of kidney; Z91.018 Allergy to other foods; Z85.528 Personal history of other malignant neoplasm of kidney
CPT/HCPCS: 36415; 36600; 71045; 71260; 74177; 80048; 80076; 81001; 82106; 82378; 82803; 83690; 84439; 84443; 85007; 85025; 85027; 86301; 86304; 87040; 93005; 93010; 93306; 94760; 96365; 96366; 96375; G0378; J0282; J1885; J2270; J2405; J2543; J7030; J7060; Q9967